=== PATIENT | male | born 1975 | race Hispanic/Latino ===

== ENCOUNTER 2017-09-17 15:26 | Inpatient (IN) | payer OTHER ==
[~2017-09-17] VITALS: Ht 165.1 cm; Wt 83.0 kg
--- NOTE | 2017-09-17 15:59 | CT SCAN REPORT ---
EXAMINATION: CT HEAD WITHOUT CONTRAST CLINICAL INFORMATION: Hypertension, headache COMPARISON: None TECHNIQUE: Contiguous axial imaging was performed from the skull base to vertex without intravenous administration of contrast. DLP: 613 mGy-cm FINDINGS: No intra-axial or extra-axial hemorrhage. No acute territorial infarct. Ventricles and sulci appear normal. Preservation of chavez-white matter differentiation. No mass, mass effect, or midline shift. No fracture. The mastoid air cells and visualized paranasal sinuses are clear. IMPRESSION: No acute intracranial pathology.
--- NOTE | 2017-09-17 16:18 | RADIOLOGY REPORT ---
EXAMINATION: XR CHEST CLINICAL INFORMATION: Chest pain. COMPARISON: None TECHNIQUE: 2 views of the chest were obtained. FINDINGS: No significant abnormality is noted involving the heart, lungs, mediastinum, bony thorax or soft tissues. IMPRESSION: No acute pulmonary pathology demonstrated.
[2017-09-17 16:27] LABS: ABSOLUTE BASOPHIL COUNT 0.1 /CUMM (0.0-0.2); ABSOLUTE EOSINOPHIL COUNT 0.1 /CUMM (0.0-0.7); ABSOLUTE GRANULOCYTE CT 10.3 /CUMM (1.4-6.5); ABSOLUTE LYMPH COUNT 2.7 /CUMM (1.2-3.4); ABSOLUTE MONOCYTE COUNT 1.4 /CUMM (0.10-0.60); BASOPHIL % 0.4 % (0.0-2.0); EOSINOPHIL % 0.9 % (0-5); GRANULOCYTE % 70.6 % (42.2-75.2); HEMATOCRIT 48.5 % (42-52); MEAN CORPUSCULAR HGB CONC 33.7 G/DL (33.0-37.0); MEAN CORPUSCULAR VOLUME 91.9 FL (80.0-94.0); MEAN PLATELET VOLUME 7.8 FL (7.4-10.4); PLATELET COUNT 246 /CUMM (130-400); RBC DISTRIBUTION WIDTH 13.7 % (11.5-14.5); RED BLOOD CELL CT 5.27 /CUMM (4.70-6.10); WHITE BLOOD CELL COUNT 14.6 /CUMM (4.8-10.8)
--- NOTE | 2017-09-17 17:00 | ED GENERAL ADULT ---
History of Present Illness General Chief Complaint: Neuro Symptoms/ Deficit Stated Complaint: SENT BY URGENT FOR NEURO SYMPTOMS Source: patient, family Exam Limitations: no limitations Vital Signs & Intake/Output Vital Signs & Intake/Output Vital Signs Date Time Temp Pulse Resp B/P B/P Pulse O2 O2 Flow FiO2 Mean Ox Delivery Rate 09/18 0233 66 213/117 09/18 0142 100 Room Air 09/18 0043 98.1 73 18 166/89 98 Room Air 09/17 2333 98.0 68 18 175/94 98 Room Air 09/17 2130 67 18 178/108 99 Room Air 09/17 1823 178/110 09/17 1805 97.7 71 20 185/112 98 Room Air 09/17 1733 97.4 72 20 179/109 09/17 1705 97.4 72 20 179/109 99 Room Air 09/17 1634 100 Room Air Room Air 09/17 1621 72 20 206/114 100 Room Air 09/17 1605 97.3 93 18 202/132 09/17 1533 97.3 93 18 202/132 99 Room Air ED Intake and Output 09/18 0000 09/17 1200 Intake Total Output Total Balance Patient 185 lb Weight Weight Reported by Patient Measurement Method Allergies Coded Allergies: No Known Allergies (09/17/17) Reconcile Medications No Known Home Medications Triage Note: 41M REPORTS FEELING ILL SINCE WEDNESDAY STARTING W SORE THROAT, RELATIONSHIP MANAGER COUGH AND CHEST PRESSURE W JAW PAIN - CONSTANT. REPORTS HX OF HTN, UNTREATED DUE TO NO INSURANCE COVERAGE. HEADACHE YESTERDAY, NONE AT PRESENT AND DENIES VISION CHANGES. WENT TO WALK IN WHO REFERRED HIM TO ED TO R/O CVA. DENIES NUMBNESS OR PARASTHESIAS, SPEECH CLEAR AND NO FACIAL DROOP. ENDORSES SUBJECTIVE FEVERS/CHILLS BUT AFEBRILE IN TRIAGE. +N/V/D X1-2 DAYS, NO DISTRESS AT PRESENT. MANUAL BP 202/132 IN TRIAGE. IMMEDIATELY TO ROOM 1 FOR EVAL Triage Nurses Notes Reviewed? yes Onset: Gradual Duration: day(s): Timing: recent history Injury Environment: home Severity: moderate HPI: 41-year-old male with history of hypertension presents emergency department symptomatically urgent care for hypertension. Patient states he has been feeling ill for the past 3 days with symptoms including sore throat, dry cough, nausea, bloody vomiting, nonbloody diarrhea. Patient reports perfectly to episode of diarrhea per day. Patient states that 2 nights ago he experienced severe substernal chest pain described as 20/10. Chest pain resolved on its own. Patient has been off of his blood pressure medications for over one year as he does not of medical insurance and cannot afford it. Patient recently returned home from a vacation to [place]. Patient reports a headache yesterday however no current headache. Patient denies visual changes, syncope, abdominal pain, dyspnea. (Temitope Carbajal) Past History Travel History Traveled to [place] past 21 day No Medical History Any Pertinent Medical History? see below for history Cardiovascular: hypertension Musculoskeletal: L3-L5 BULGING DISCS Surgical History Surgical History: non-contributory Psychosocial History What is your primary language [place] Tobacco Use: Current Daily Use Daily Tobacco Use Amount/Type: => 5 Cigarettes daily ETOH Use: occasional use Illicit Drug Use: marijuana Family History Hx Contributory? No (Temitope Carbajal) Review of Systems Review of Systems Constitutional: Reports: see HPI. EENTM: Reports: see HPI. Respiratory: Reports: no symptoms. Cardiovascular: Reports: see HPI. GI: Reports: see HPI. Genitourinary: Reports: no symptoms. Musculoskeletal: Reports: no symptoms. Skin: Reports: no symptoms. Neurological/Psychological: Reports: no symptoms. Hematologic/Endocrine: Reports: no symptoms. Immunologic/Allergic: Reports: no symptoms. All Other Systems: Reviewed and Negative (Temitope Carbajal) Physical Exam Physical Exam General Appearance: well developed/nourished, no apparent distress, alert, awake Head: atraumatic, normal appearance Eyes: Bilateral: normal appearance. 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 Yes CVA/TIA Diagnosis: No Sepsis Present: No Sepsis Focused Exam Completed? No (Verna ESCOBAR,Temitope Walden) Progress Differential Diagnoses I considered the following diagnoses in my evaluation of the patient: [ Hypertensive urgency, hypertensive emergency, AMI, ICH, PE, aortic dissection] Plan of Care: Orders Procedure Date/time Status Nothing by Mouth 09/18 B Active ECHOCARDIOGRAM 09/18 0700 Active LIPID PANEL 09/18 0500 Active ICU LAB BUNDLE 09/18 0500 Active CBC WITHOUT DIFFERENTIAL 09/18 0500 Active ACTIVE SURVEILLANCE NARES 09/18 0206 Active Weight 09/18 0140 Active VTE Mechanical Prophylaxis 09/18 0140 Active Vital Signs 09/18 0140 Active Turn and Reposition 09/18 0140 Active Teach/Educate 09/18 0140 Active Skin Integrity Protocol 09/18 0140 Active Skin/Pressure Ulcer Assess (Sk 09/18 0140 Active Precautions 09/18 0140 Active Pain Treatment and Response 09/18 0140 Active Nutritional Intake, Monitor 09/18 0140 Active Isolation 09/18 0140 Active Patient Care Conference 09/18 0140 Active Activity/Ambulation 09/18 0140 Active TROPONIN LEVEL 09/18 0100 Active EKG 09/18 0100 Active Heart Healthy Diet 09/17 D Complete Pathway - chart 09/17 2306 Active Code Status 09/17 2306 Active Lab Add-on Test 09/17 2152 Active Patient Data 09/17 2147 Active Admit to inpatient 09/17 2136 Active URINE DRUG SCREEN FOR ER ONLY 09/17 1946 Complete MAGNESIUM 09/17 1911 Complete TROPONIN LEVEL 09/17 1910 Complete EKG 09/17 1709 Active THYROID STIMULATING HORMONE 09/17 1610 Complete FREE T4 09/17 1610 Complete Intake & Output 09/17 1534 Active THROAT CULTURE W/QUICK STREP 09/17 1534 Active Telemetry/Quality Assurance Intern 09/17 1533 Active TROPONIN LEVEL 09/17 1533 Complete D-DIMER 09/17 1533 Complete COMPREHENSIVE METABOLIC PANEL 09/17 1533 Complete CBC WITHOUT DIFFERENTIAL 09/17 1533 Complete EKG 09/17 1533 Active Pathway - chart 09/17 UNK Active House Staff 09/17 UNK Active ACS Core Measures 09/17 UNK Active Lab Add-on Test 09/17 UNK Active VTE Mechanical Prophylaxis 09/17 UNK Active Vital Signs 09/17 UNK Active Current Medications Sig/Ludmila Start time Last Medication Dose Stop Time Status Admin Lisinopril 10 MG DAILY 09/18 0900 AC (Prinivil) Multivitamins 1 TAB DAILY 09/18 0900 AC (Theragran Vitamins) Heparin Sodium 5,000 UNIT Q8 09/18 06 AC (Porcine) Laboratory Tests 09/18/17 0125: Troponin I Pending 09/18/17 0039: Urine Opiates Screen < 100, Methadone Screen < 40, Barbiturate Screen < 60, Ur Phencyclidine Scrn < 6.00, Amphetamines Screen < 100, U Benzodiazepines Scrn > 800 H, Urine Cocaine Screen < 50, Urine Cannabis Screen 77.00 H 09/17/17 1911: Magnesium 1.9, Troponin I 0.13 *H 09/17/17 1610: Anion Gap 14, Estimated GFR > 60, BUN/Creatinine Ratio 16.7, Glucose 97, Calcium 9.9, Total Bilirubin 0.6, AST 21, ALT 27, Alkaline Phosphatase 84, Troponin I 0.11 *H, Total Protein 8.4 H, Albumin 4.7, Globulin 3.7, Albumin/Globulin Ratio 1.3, TSH 1.660, Free T4 1.54, D-Dimer High Sensitivty < 200, CBC w Diff NO MAN DIFF REQ, RBC 5.27, MCV 91.9, MCH 31.0, MCHC 33.7, RDW 13.7, MPV 7.8, Gran % 70.6, Lymphocytes % 18.8 L, Monocytes % 9.3, Eosinophils % 0.9, Basophils % 0.4 , Absolute Granulocytes 10.3 H, Absolute Lymphocytes 2.7, Absolute Monocytes 1.4 H, Absolute Eosinophils 0.1, Absolute Basophils 0.1 Microbiology 09/18 0130 UPPER RESP: Surveillance Culture - RECD Spoke with Dr. Hurt who agrees with our plan of care at this time. He recommends ASA now pending CT. Patient given labetalol 10 mg with some reduction in his blood pressure. He was given a second dose of [address] aortogram is pending given patient's elevated troponin here and will assess for aortic dissection versus central pulmonary embolism. Dr. Silverio agrees with the plan of care. CTA is negative. Spoke with Dr. Newton regarding this patient and trending up troponin. She reviewed the patient's EKGs and She believes these findings are consistent with strain relating to hypertensive emergency rather than AMI. She states his blood pressure has been adequately reduced so far here in the emergency department and states further blood pressure control at this time is not necessary. She agrees with the plan of aspirin, she recommends ICU admission. Spoke with Dr. Younger regarding the patient's ICU admission. Diagnostic Imaging: Viewed by Me: Radiology Read, CT Scan. Discussed w/RAD: Radiology Read, CT Scan. Radiology Impression: PATIENT: LACY ALEMAN PRESENT AGE: 41 PATIENT ACCOUNT NO: [id number] : 77 LOCATION: ER ORDERING PHYSICIAN: Good ESCOBAR SERVICE DATE: 09/17/17 EXAM TYPE: CAT - CT HEAD WO IV CONTRAST EXAMINATION: CT HEAD WITHOUT CONTRAST CLINICAL INFORMATION: Hypertension, headache COMPARISON: None TECHNIQUE: Contiguous axial imaging was performed from the skull base to vertex without intravenous administration of contrast. DLP: 613 mGy-cm FINDINGS: No intra-axial or extra- axial hemorrhage. No acute territorial infarct. Ventricles and sulci appear normal. Preservation of chavez-white matter differentiation. No mass, mass effect, or midline shift. No fracture. The mastoid air cells and visualized paranasal sinuses are clear. IMPRESSION: No acute intracranial pathology. DICTATED BY: Dino Siddiqui MD DATE/TIME DICTATED:09/17/171553 PAPER WINDER: TODD DATE/TIME TRANSCRIBED:09/17/171553 CONFIDENTIAL, DO NOT COPY WITHOUT APPROPRIATE AUTHORIZATION. <Electronically signed in Other Vendor System> SIGNED BY: Dino Siddiqui MD 09/17/171558 CXR Impression: PATIENT: LACY ALEMAN PRESENT AGE: 41 PATIENT ACCOUNT NO: [id number] : 77 LOCATION: ER ORDERING PHYSICIAN: Good ESCOBAR SERVICE DATE: 09/17/17 EXAM TYPE: RAD - XRY-CHEST XRAY, TWO VIEWS EXAMINATION: XR CHEST CLINICAL INFORMATION: Chest pain. COMPARISON: None TECHNIQUE: 2 views of the chest were obtained. FINDINGS: No significant abnormality is noted involving the heart, lungs, mediastinum, bony thorax or soft tissues. IMPRESSION: No acute pulmonary pathology demonstrated. DICTATED BY: Elkin Christianson MD DATE/TIME DICTATED:09/17/171607 PAPER WINDER:TAYLOR DATE/TIME TRANSCRIBED:09/17/17 160 CONFIDENTIAL, DO NOT COPY WITHOUT APPROPRIATE AUTHORIZATION. <Electronically signed in Other Vendor System> SIGNED BY: Elkin Christianson MD 09/17/171617 Initial ED EKG: sinus rhythm @85bpm, LVH, nonspecific ST changes Repeat EKG: unchanged (Temitope Carbajal) Departure Departure Disposition: STILL A PATIENT Condition: Stable Clinical Impression Primary Impression: Hypertensive emergency Secondary Impressions: Elevated troponin Referrals: Patient Has No Primary Care Dr (PCP/Family) Departure Forms: Customer Survey General Discharge Information Prescriptions: Current Visit Scripts No Known Home Medications Admission Note Spoke With: Mp Younger MD Documentation of Exam: Documentation of any treatments & extenuating circumstances including Concerns Regarding Discharge (functional status, medication knowledge or non-compliance, living conditions, etc.) that warrant an admission rather than observation: [ Hypertension emergency with evidence of cardiac stress given elevated troponin requiring ICU monitoring, IV antihypertensives, repeat EKGs and troponins, cardiology consult, premature discharge medically unsafe] (Temitope Carbajal) PA/RELATIONSHIP MANAGER Co-Sign Statement Statement: ED Attending supervision documentation- [x] I saw and evaluated the patient. I have also reviewed all the pertinent lab results and diagnostic results. I agree with the findings and the plan of care as documented in the PA's/RELATIONSHIP MANAGER's documentation. 09/17/17, 22:00.... pt going to icu, care assumed by me... pt resting comfortably , chest pain free, benign exam.... merits admission for serial trops/blood pressure control, cards evaluation. [] I have reviewed the ED Record and agree with the PA's/RELATIONSHIP MANAGER's documentation. [] Additions or exceptions (if any) to the PAs/RELATIONSHIP MANAGER's note and plan are summarized below: [] (Lili MCARTHUR,Inderjit Kaminski) Critical Care Note Critical Care Note Critical Care Time: 75-104 min (Temitope Carbajal)
--- NOTE | 2017-09-17 18:09 | CT SCAN REPORT ---
EXAMINATION: CT ANGIOGRAM CHEST, ABDOMEN AND PELVIS CLINICAL INFORMATION: Chest pain. Recent travel. Positive troponin. COMPARISON: Chest x-ray 09/17/2017 TECHNIQUE: Noncontrast axial images obtained through the chest. Multiple axial images were obtained through the chest abdomen and pelvis following the administration of 95 mL of Optiray 320 intravenous contrast. Coronal and sagittal reformatted images performed at CT scanner. No 3-D imaging. DLP: 1229.06 mGy-cm. FINDINGS: VASCULAR: The thoracic aorta is normal. There is no dissection. There is no aneurysm. There is mild atherosclerotic vascular wall calcifications of the abdominal aorta. There is normal enhancement of the major branch vessels at the thoracic aortic arch as well as in the abdomen and pelvis. The pulmonary arteries are well opacified. No evidence of central pulmonary embolism. There are coronary artery calcifications. CT CHEST: MEDIASTINUM: No mediastinal mass. No significant lymphadenopathy. There is no pericardial effusion. LUNGS: The lungs are clear. No nodule or infiltrate. Central bronchial airways open. FLUID: There is no pericardial effusion. There is no pleural effusion. AXILLA: No significant lymphadenopathy. CT SCAN ABDOMEN PELVIS: LIVER, GALLBLADDER, AND BILIARY TREE: The liver is normal in size, shape, and attenuation. No focal hepatic lesion or biliary ductal dilatation is present. The gallbladder is unremarkable with no evidence of radiopaque gallstones, gallbladder wall thickening, or obvious pericholecystic inflammatory changes. PANCREAS: Unremarkable. SPLEEN: Unremarkable. ADRENAL GLANDS: 1.6 cm fatty adrenal adenoma involving the right adrenal gland. Left adrenal gland is normal. KIDNEYS AND URETERS: The kidneys are normal in size, shape, and attenuation. No hydronephrosis, hydroureter, or calculi seen. No perinephric stranding. BLADDER: Unremarkable. GASTROINTESTINAL TRACT: The small and large bowel are unremarkable. The appendix is unremarkable. ABDOMINAL WALL: No significant hernia is appreciated. LYMPH NODES: Normal. PELVIC VISCERA: Unremarkable. OSSEOUS STRUCTURES: Unremarkable. IMPRESSION: Normal CT scan of the chest, abdomen pelvis. Normal aorta.
--- NOTE | 2017-09-17 21:50 | History & Physical ---
AntoinetteYann 09/17/172149: General Information and HPI MD Statement: I have seen and personally examined LAYC ALEMAN and documented this H&P. The patient is a 41 year old M who presented with a patient stated chief complaint of [chest pain]. Source of Information: patient, family Exam Limitations: no limitations History of Present Illness: This is a 41 years old gentleman who has history of hypertension for the past 15 years diagnosed when he was 27 years old and who has not been on medication for the past 2 yearS by history seems to have been taking hydrochlorothiazide 25 mg before stopping to take the medication due to insurance/cost issues. He does not have a PCP. The patient is reporting to be well until 2 days ago on Wednesday when he started having chills throat pain and bilateral jaw pain which was associated with central chest pain with shortness of breath and feeling like 300 pounds on his chest. The pain was on and off lasting throughout the night into morning and he reports to be severe 20 out of 10 but did not take any medication or seek medical attention. He denies ever experiencing this kind of chest pain in the past and he reports to do all his activities without limitation. He reports significant increase in his pain when he lies flat and slight relief with sitting down. The pain subsided from morning just to recur again today after which his forced him to go to walk-in clinic after which was sent to [facility]. The patient is reporting that since Wednesday he has been unable to sleep despite being a very heavy sleeper and has almost spent the past 2 nights awake. Patient is reporting throat pain for the past 2 days she denies pain during swallowing he is having a cough that is dry but denies any nasal congestion, posterior nasal dripping of heaviness in the sinuses he has no sick contact of anyone with similar symptoms. He has been having GI symptoms for the same duration of 2 days initially with vomiting recently eaten food no blood multiple times until when he was just wrenching with dry heaves and on the same note started having diarrhea which was nonbloody around 4 motions. He has sick contact with 2 family members having the same GI symptoms and he thought that he might be having a stomach bug. He is reporting chills for the same duration but denies any fevers. Patient denies using drugs of abuse like cocaine but reports that he intermittently smokes marijuana. This patient has significant family history of coronary artery disease with his father being hypertensive at an early age and from massive myocardial infarction at age 42. He reports dizziness and lightheadedness but denies any weakness, change in voice or impaired gait. Allergies/Medications Allergies: Coded Allergies: No Known Allergies (09/17/17) Home Med list No Known Home Medications Past History Travel History Traveled to [place] past 21 day No Medical History Cardiovascular: hypertension Musculoskeletal: L3-L5 BULGING DISCS Surgical History Surgical History: non-contributory Past Family/Social History Family History Relations & Conditions if any FATHER (Hypertension of myocardial infarction at 42 years). Psychosocial History ETOH Use: occasional use Illicit Drug Use: marijuana Functional Ability ADLs Independent: dressing, eating, toileting, bathing. Review of Systems Review of Systems Constitutional: Reports: chills, weakness. Denies: fever. Cardiovascular: Reports: chest pain, palpitations. Denies: edema. Respiratory: Reports: cough, short of breath. Denies: hemoptysis, sputum production, wheezing. GI: Reports: diarrhea, nausea, vomiting. Genitourinary: Denies: no symptoms. Musculoskeletal: Denies: no symptoms. Hematologic/Endocrine: Denies: no symptoms. Immunologic/Allergic: Denies: no symptoms. All Other Systems: Reviewed and Negative Exam & Diagnostic Data Last 24 Hrs of Vital Signs/I&O Vital Signs Date Time Temp Pulse Resp B/P B/P Pulse O2 O2 Flow FiO2 Mean Ox Delivery Rate 09/17 2130 67 18 178/108 99 Room Air 09/17 1823 178/110 09/17 1805 97.7 71 20 185/112 98 Room Air 09/17 1733 97.4 72 20 179/109 09/17 1705 97.4 72 20 179/109 99 Room Air 09/17 1634 100 Room Air Room Air 09/17 1621 72 20 206/114 100 Room Air 09/17 1605 97.3 93 18 202/132 09/17 1533 97.3 93 18 202/132 99 Room Air Intake & Output 09/17 1600 09/17 0800 09/17 0000 Intake Total Output Total Balance Patient 185 lb Weight Physical Exam General Appearance Alert, Oriented X3, Cooperative, No Acute Distress Skin No Rashes, Muultiple tatoos upper limbs ni IV track wen Skin Temp/Moisture Exam: Warm/Dry Sepsis Skin Exam (color): Normal for Ethnicity HEENT Atraumatic, PERRLA, EOMI, dry mucous membranes Neck Supple, No JVD Cardiovascular Regular Rate, Normal S1, Normal S2, No Murmurs Lungs Clear to Auscultation, Normal Air Movement Abdomen Normal Bowel Sounds, Soft, No Tenderness, No Hepatospenomegaly, No Masses Neurological Normal Speech, Strength at 5/5 X4 Ext, Normal Tone, Sensation Intact, Cranial Nerves 3-12 NL, Reflexes 2+ Extremities No Clubbing, No Cyanosis, No Edema, Normal Pulses Vascular Normal Pulses Last 24 Hrs of Labs/Sourav: Laboratory Tests 09/17/17 1911: Magnesium 1.9, Troponin I 0.13 *H 09/17/17 1610: Anion Gap 14, Estimated GFR > 60, BUN/Creatinine Ratio 16.7, Glucose 97, Calcium 9.9, Total Bilirubin 0.6, AST 21, ALT 27, Alkaline Phosphatase 84, Troponin I 0.11 *H, Total Protein 8.4 H, Albumin 4.7, Globulin 3.7, Albumin/Globulin Ratio 1.3, TSH Pending, Free T4 Pending, D-Dimer High Sensitivty < 200, CBC w Diff NO MAN DIFF REQ, RBC 5.27, MCV 91.9, MCH 31.0, MCHC 33.7, RDW 13.7, MPV 7.8, Gran % 70.6, Lymphocytes % 18.8 L, Monocytes % 9.3, Eosinophils % 0.9, Basophils % 0.4 , Absolute Granulocytes 10.3 H, Absolute Lymphocytes 2.7, Absolute Monocytes 1.4 H, Absolute Eosinophils 0.1, Absolute Basophils 0.1 Diagnostic Data EKG Results Mild about [address] elevation in lead I and II, ST depression in lead 5 and 6 there is no baseline EKG Very large QRS complexes normal axis CXR Results No acute pathology Other Results CTA of the chest abdomen and pelvis is negative Assessment/Plan Assessment: This is a 41 years old with known hypertension for the past 15 years who is presenting with chest pain for the past 3 days severe central chest pain with bilateral jaw pain associated with shortness of breath and feeling like 300 pounds on his chest. Patient is not on high antihypertensive medication for the past 2 years. On presentation he was found to be severely hypotensive blood pressure of 202/132 and elevated troponin initially 0.11 and on repeated value increase it to 0.13 with EKG changes mild ST elevation in lead I and II and ST depression in lead 5 and 6. The EKG is also showing very large QRS complexes signifying extended. Of elevated blood pressure. Problem list Hypertensive emergency Elevated troponin with EKG changes Leukocytosis Gastroenteritis Nicotine dependence Admit the patient to the intensive care unit Vital signs every hour Patient blood pressure has decreased about 25% and will continue to have permissive hypertension with systolic of around 170 without further attempt to decrease the blood pressure more We will start the patient on lisinopril 10 mg daily from a.m. but will consider starting earlier if blood pressure goes up significantly Continue to use intermittent IV labetalol to control high blood pressure U tox to rule out cocaine intoxication TSH and free T4 Lipid panel on a.m. blood work Echocardiogram Cardiology consult Case management consult to help with insurance issues Counseling on cigarette smoking Patient is full code Alps and heparin for DVT prophylaxis Heart healthy diet now and n.p.o. from midnight As Ranked By This Provider Problem List: 1. Elevated troponin 2. Hypertensive emergency 3. Gastroenteritis 4. Leucocytosis Core Measures/Misc (12/06) Acute Coronary Syndrome ACS Diagnosis: Yes No ANKIT/ARB d/t Started on Lisinopril No ASA d/t Given No Statin d/t No data checking panel Congestive Heart Failure Congestive Heart Failure Diagnosis No Cerebrovascular Accident CVA/TIA Diagnosis: No VTE (View Protocol) VTE Risk Factors Acute Medical Illness No Mechanical VTE Prophylaxis d/t N/A MechProphylax Ordered No VTE Pharm Prophylaxis d/t NA PharmProphylax ordered Sepsis (View protocol) Sepsis Present: No If YES complete Sepsis Event Note If YES complete Sepsis Event Note Mp Younger 09/18/17 0211: Core Measures/Misc (12/06) Sepsis (View protocol) If YES complete Sepsis Event Note If YES complete Sepsis Event Note Attending MD Review Statement Attending Statement Attending MD Statement: examined this patient, discuss w/resident/PA/MORTISING MACHINE OPERATOR, agreed w/resident/PA/MORTISING MACHINE OPERATOR, discussed with family, reviewed EMR data (avail), reviewed images, amended to note Attending Assessment/Plan: CC: High blood pressure PMH: History of hypertension, noncompliance, back pain status post surgery ( Workmen's Comp. ) Patient has not been feeling well since the redness today, it started as sore throat, bilateral jaw pain, nonproductive cough and chest pressure. The symptoms were intermittent, lasted whole night and redness to it and chest pain gradually relieved by morning. His symptoms recurred again today so he went to urgent care where he was found to have high blood pressure and was sent to ER to rule out stroke. He denies any neurological weakness, currently denies any chest pain, shortness of breath, wheezing. He feels subjective fever and chills, has been having nausea, vomiting, diarrhea since last 1-2 days, most of his family members are sick with similar symptoms. He also endorses lightheadedness and palpitations when he had chest pain. Vitals: Temperature 97.3, pulse 93, RR 18, blood pressure 202/132 on arrival, gradually trended down to 179/109, saturating 99% on room air. On exam: A O 3, cooperative, no acute distress, neck supple, JVD normal, no lymphadenopathy, mucosa moist, complete neurological examination normal, no dependent edema, no obvious skin rashes or inflammation CVS: S1-S2, RRR. RS: Clear to auscultate bilaterally. Abdomen: Soft, NT, ND, bowel sounds present. CXR: No acute pulmonary pathology demonstrated. CT head without IV contrast: No acute intracranial pathology. CTA chest, abdomen and pelvis: Normal CT scan of the chest, abdomen pelvis. Normal aorta. Assessment and plan 41-year-old male with past medical history significant for hypertension, noncompliant with medications since last 2 years because of insurance issues and patient prefers not to take medications if not required; presented in ER from urgent care for significantly high blood pressure. He has hypertensive emergency along with ECG changes and elevated troponin. He had chest pain approximately 3 days back lasted overnight, intermittent, worse with lying down position and gradually improved over morning. He had another episode of chest pain today but currently pain-free. He also endorses lightheadedness and palpitations. Recently patient had been having nausea vomiting and diarrhea since last 2-3 days, all family members are sick with similar illness. ECG shows very minimal ST elevation in V1 and V2, ST depression in V5 and V6, likely secondary to hypertensive urgency, ECG was reviewed by critical systems technician. Second set of troponin trended up to 0.13 from 0.11. Patient also endorses marijuana use ( for back pain, no other meds), last use on Wednesday. He uses prescribed marijuana and does not get it from street, denies any cocaine or any other substance abuse. Significant family history, father had TX at the age of 42, patient is current smoker. HERNAN sre 3, patient may benefit from early cath, but we will obtained cardiology opinion . Given his severe chest pain, accelerated blood pressure CTA chest and abdomen and pelvis was obtained to rule out any aortic abnormalities. + Hypertensive emergency + ACS : NSTEMI + Leukocytosis probably secondary to recent gastroenteritis + Gastroenteritis probably viral - Admit to ICU, as suggested by critical systems technician - Continuous telemetry monitoring - Serial troponin and EKGs - 2-D echo in a.m. - Cardiology consult in a.m. - Continue aspirin, atorvastatin 40 mg, - Continue heparin drip is further chest pain episode or further elevation in troponin - U tox - If patient's blood pressure remains around 170s/110s than no further treatment , if blood pressure spikes more than this then when necessary laboratory all small doses - Start lisinopril 10 mg if BP trends up - Lipid profile Patient changed his job approximately 2 years back, they promised insurance but did not provide it. Even though he could afford medications he could not afford primary care office's fee so he stopped taking medications. Currently he has changed his job again, expecting insurance within a month of starting his new job. Patient could not qualify for state insurance.
[2017-09-18] VITALS (7 sets, daily range): BP systolic 144–213; BP diastolic 90–117
--- NOTE | 2017-09-18 02:15 | Admission Certification ---
Admission Certification Certification Statement - As attending physician, I certify that at the time of - admission, based on clinical presentation, severity of - symptoms, need for further diagnostic testing and - therapeutic interventions, and risk of adverse outcomes - without in-hospital treatment, in my clinical assessment, - this patient requires an acute hospital stay for a minimum - of two nights or longer. I have also considered psychsocial - factors such as support system, advanced age, financial - issues, cognitive issues, and failed out-patient treatments, - past re-admission history, safety of patient, and lack of - compliance as applicable. Specific rationale supporting this admission is: Hypertensive emergency, NSTEMI
[2017-09-18 05:38] LABS: ABSOLUTE BASOPHIL COUNT 0.1 /CUMM (0.0-0.2); ABSOLUTE EOSINOPHIL COUNT 0.1 /CUMM (0.0-0.7); ABSOLUTE GRANULOCYTE CT 8.6 /CUMM (1.4-6.5); ABSOLUTE LYMPH COUNT 2.3 /CUMM (1.2-3.4); ABSOLUTE MONOCYTE COUNT 1.3 /CUMM (0.10-0.60); BASOPHIL % 0.6 % (0.0-2.0); EOSINOPHIL % 1.2 % (0-5); HEMATOCRIT 43.6 % (42-52); MEAN CORPUSCULAR HGB 30.9 PG (27.0-31.0); MEAN CORPUSCULAR HGB CONC 33.6 G/DL (33.0-37.0); MEAN CORPUSCULAR VOLUME 91.9 FL (80.0-94.0); PLATELET COUNT 223 /CUMM (130-400); RBC DISTRIBUTION WIDTH 13.1 % (11.5-14.5); RED BLOOD CELL CT 4.75 /CUMM (4.70-6.10); WHITE BLOOD CELL COUNT 12.4 /CUMM (4.8-10.8)
[2017-09-18 06:25] LABS: PT 12.1 SEC (9.4-12.5)
--- NOTE | 2017-09-18 09:01 | PN- Housestaff ---
Bhavana MCARTHUR,Alexandr 09/18/17 0900: Subjective Follow-up For: Hypertensive emergency, type II WI Complaints: no complaints Tele-Events Since Last Visit: He had wide QRS complex/right bundle branch block,At around 1:49 a.m. which lasted for 30 seconds to 1 minute. He also had an episode of chest pain around 2 :30am with high blood pressure more than 200. Review of Systems Constitutional: Denies: no symptoms. Objective Last 24 Hrs of Vital Signs/I&O Vital Signs Date Time Temp Pulse Resp B/P B/P Pulse O2 O2 Flow FiO2 Mean Ox Delivery Rate 09/18 0914 97 124/70 09/18 0800 97.7 97 16 168/116 99 Room Air 09/18 0400 97 Room Air 09/18 0329 73 197/104 09/18 0300 70 23 197/104 98 Room Air 09/18 0233 66 213/117 09/18 0200 72 213/117 09/18 0142 100 Room Air 09/18 0100 72 15 213/117 100 Room Air 09/18 0043 98.1 73 18 166/89 98 Room Air 09/17 2333 98.0 68 18 175/94 98 Room Air 09/17 2130 67 18 178/108 99 Room Air 09/17 1823 178/110 09/17 1805 97.7 71 20 185/112 98 Room Air 09/17 1733 97.4 72 20 179/109 09/17 1705 97.4 72 20 179/109 99 Room Air 09/17 1634 100 Room Air Room Air 09/17 1621 72 20 206/114 100 Room Air 09/17 1605 97.3 93 18 202/132 09/17 1533 97.3 93 18 202/132 99 Room Air Intake & Output 09/18 1600 09/18 0800 09/18 0000 Intake Total 150 Output Total 150 Balance 0 Intake, IV 100 Intake, Oral 50 Number 0 Bowel Movements Output, Urine 150 Patient 78.473 kg 83.915 kg Weight Weight Bed scale Reported by Patient Measurement Method Physical Exam General Appearance: Alert, Oriented X3, Cooperative, No Acute Distress HEENT: Atraumatic, PERRLA, EOMI Neck: Supple, No JVD Cardiovascular: Regular Rate, Normal S1, Normal S2 Lungs: Clear to Auscultation, Normal Air Movement Abdomen: Soft, No Tenderness Neurological: Normal Speech Extremities: No Clubbing, No Cyanosis, No Edema Current Medications: Current Medications Sig/Ludmila Start time Last Medication Dose Route Stop Time Status Admin Amlodipine Besylate 10 MG DAILY 09/18 1312 UNVr PO Aspirin 81 MG DAILY 09/18 0944 AC 09/18 PO 1007 Aspirin 0 .STK-MED ONE 09/17 1801 DC PO Aspirin 325 MG ONCE ONE 09/17 1800 DC 09/17 PO 09/17 1801 1805 Atorvastatin Calcium 40 MG 1700 09/18 1700 AC PO Heparin Sodium 5,000 UNIT Q8 09/18 0600 AC (Porcine) SC Hydralazine HCl 10 MG TIDPRN 09/18 1315 UNVr IV Labetalol HCl 5 MG ONCE ONE 09/18 0215 DC 09/18 IV 09/18 0216 0233 Labetalol HCl 20 MG ONCE ONE 09/17 1715 DC 09/17 IV 09/17 1716 1733 Labetalol HCl 0 .STK-MED ONE 09/17 1602 DC IV Labetalol HCl 10 MG ONCE ONE 09/17 1545 DC 09/17 IV 09/17 1546 1605 Lisinopril 10 MG DAILY 09/18 0900 AC 09/18 PO 0914 Lisinopril 10 MG ONCE ONE 09/18 0215 DC 09/18 PO 09/18 0216 0329 Lorazepam 1 MG ONE ONE 09/18 1145 DC 09/18 IV 09/18 1146 1138 Magnesium Sulfate 1 GM ONCE ONE 09/18 0445 DC 09/18 Dextrose/Water 100 ML IV 09/18 0844 0459 Multivitamins 1 TAB DAILY 09/18 0900 AC 09/18 PO 0914 Last 24 Hrs of Lab/Sourav Results Last 24 Hrs of Labs/Mics: Laboratory Tests 09/18/17 0510: Anion Gap 11, Estimated GFR > 60, Glucose 86, Calcium 9.3, Phosphorus 4.6 H, Magnesium 2.0, Total Bilirubin 0.7, AST 17, ALT 27, Albumin 4.0, Triglycerides 108, Cholesterol 134, LDL Cholesterol, Calc 79, HDL Cholesterol 34 L, Cholesterol/HDL Ratio 4, PT 12.1, INR 1.11, CBC w Diff NO MAN DIFF REQ, RBC 4.75 , MCV 91.9, MCH 30.9, MCHC 33.6, RDW 13.1, MPV 8.0, Gran % 69.0, Lymphocytes % 18.9 L, Monocytes % 10.3 H, Eosinophils % 1.2, Basophils % 0.6, Absolute Granulocytes 8.6 H, Absolute Lymphocytes 2.3, Absolute Monocytes 1.3 H, Absolute Eosinophils 0.1, Absolute Basophils 0.1 09/18/17 0125: Troponin I 0.13 *H 09/18/17 0039: Urine Opiates Screen < 100, Methadone Screen < 40, Barbiturate Screen < 60, Ur Phencyclidine Scrn < 6.00, Amphetamines Screen < 100, U Benzodiazepines Scrn > 800 H, Urine Cocaine Screen < 50, Urine Cannabis Screen 77.00 H 09/17/17 1911: Magnesium 1.9, Troponin I 0.13 *H 09/17/17 1610: Anion Gap 14, Estimated GFR > 60, BUN/Creatinine Ratio 16.7, Glucose 97, Calcium 9.9, Total Bilirubin 0.6, AST 21, ALT 27, Alkaline Phosphatase 84, Troponin I 0.11 *H, Total Protein 8.4 H, Albumin 4.7, Globulin 3.7, Albumin/Globulin Ratio 1.3, TSH 1.660, Free T4 1.54, D-Dimer High Sensitivty < 200, CBC w Diff NO MAN DIFF REQ, RBC 5.27, MCV 91.9, MCH 31.0, MCHC 33.7, RDW 13.7, MPV 7.8, Gran % 70.6, Lymphocytes % 18.8 L, Monocytes % 9.3, Eosinophils % 0.9, Basophils % 0.4 , Absolute Granulocytes 10.3 H, Absolute Lymphocytes 2.7, Absolute Monocytes 1.4 H, Absolute Eosinophils 0.1, Absolute Basophils 0.1 Microbiology 09/18 0130 UPPER RESP: Surveillance Culture - RECD Assessment/Plan Assessment: Patient is a 41-year-old male, chronic smoker, significant family history of early onset coronary artery disease (age 40), and hypertension, with past medical history of hypertension, noncompliant with the medication, came to the ED after he was diagnosed as having very high blood pressure 203/110, at the urgent care. Other past medical history - chronic back pain (?PVD) -getting epidural injections every year(last April 2017) History of hypertension -he was diagnosed as having hypertension 2004. He never been on any medication. Whenever he visited urgent care. He was told as having high blood pressure, but he denies as giving any medication. As he is originally from [facility], he describes that he eats a lot of salt and meat. He is trying to be healthy, and started on low salt and using more vegetables and fruits. 2 years ago, he visited Dr. mccray infirmary attendant at [facility] and was given hydrochlorothiazide 25mg. He lost his insurance around 1 year ago, so he stopped the medication and not following any primary care provider. He visited Dr. Mccray in April 2017. He had an episode of chest pain, 07/29 3 days ago, which was increasing on lying down, and was improving on sitting, and subsided in 15 minutes. Yesterday at the time of admission his blood pressure was 202/132. He was given injection labetalol 30 milligrams in the ED and admitted into the ICU for further evaluation and management. In ICU he had an episode of wide QRS complex, possibly right bundle branch block at 149 a.m. with subsided in couple of seconds. He also had an episode of severe chest pain at 230, which lasted for a couple of seconds. He described his chest pain as a pressure or somebody sitting on the chest, which radiated to his jaw. His troponins were elevated in range of 0., 0.13, 0.13. Hypertension emergency - Demand ischemia Assessment - Patient is having adult onset hypertension, but non-compliant with medication secondary to lack of insurance coverage and unawareness of complication of hypertension. At the time of presentation, he had not had any neurological symptoms, nausea, vomiting, back pain, dyspnea. His CT scan of head was negative for any evidence of hemorrhage, infarct, edema. His Utox was negative for cocaine. His ICU bundle was negative for kidney dysfunction, LFT changes.EKG did show T-wave inversion lateral leads. Plan - * After 24 hours our target of blood pressure will be 130/80. * We will continue patient on tab lisinopril 10 mgs, tab amlodipine 10 milligrams, inj hydralazine 10 mgs IV as needed. * We'll start patient on aspirin, statins. * We started him on low-salt diet * We counseled him for low salt diet, leading to smoking, and regular follow-up with PCP as an outpatient. * We also counseled him for follow-up with infirmary attendant for further evaluation of secondary causes of hypertension, coronary artery disease and possible coronary angiography. Leukocytosis -possibly reactionary Patient does not have fever, chills, denies for any nausea, vomiting, diarrhea. * We'll follow clinically Diet -low salt, heart healthy diet. DVT prophylaxis-Alps, heparin CODE STATUS-full code Problem List: 1. Hypertensive emergency 2. Demand ischemia Pain Ratin Pain Location: chest pain Pain Goal: Remain pain free Pain Plan: Avoid NSAIds Tomorrow's Labs & Rationales: ICU bundle for follow up DVT/Prophylaxis: mechanical, pharmacological Henrietta Will MD 09/18/17 0941: Attending MD Review Statement Attending Statement Attending MD Statement: examined this patient, discuss w/resident/PA/HEALTH CONSULTANT, reviewed EMR data (avail), reviewed images Attending Assessment/Plan: 41-year-old male past medical history of hypertension. He's had long-standing hypertension since age 27 but off late has not taken any medications partly because of the lack of health insurance. He came in with a hypertensive emergency with a pressure of 210/110 with associated chest pain and headache with it. He's also had a prodromal GI illness with some nausea, vomiting and sore throat. He received IV labetalol in the emergency room and now his pressure is completely stable at 124/70. His troponin peaked at 0.13 and has stayed stable as such. He had some minor T-wave inversions but no dynamic ST-T changes and is chest pain-free. At this time I think it's he is stable to be downgraded to telemetry, will follow-up as per cardiology and get an echocardiogram. I think the troponin reflects a type II WI and demand ischemia in the setting of uncontrolled hypertension. We'll start him on a baby aspirin and a statin. Right now he is completely normotensive and his pressure fell dramatically so will hold off any antihypertensives -the lisinopril 10 mg has been ordered and we can restart that as his blood pressure tolerates. CTA done for dissection is negative and will get a formal cardiology consult.
--- NOTE | 2017-09-18 12:53 | Cons- Cardiology ---
General Information and HPI Consulting Request Date of Consult: 09/18/17 Requested By: Mp Younger MD History of Present Illness: Young man with PMH significant for severe hypertension initially diagnosed fortuitously at the age of 27. He has been on/off medications +/- medical follow up due to lack of health insurance and high cost of medication. Lito's father at the age of 44 of a massive ACS. He presented chest pain described as pressure for about 15 minutes, nausea, vomiting and diarrhea on 09/15. On 09/17, He felt dizzy, general malaise, no chest pain (although he says he felt discomfort generally everywhere...) and went to urgent care, where a BP 220/130 was measured and patient was told to present himself to the ER. In the ER, he did not complain of chest pains, dyspnea, blurry vision, headache, focal neruological deficit. EKG showed LVH with non specific repolarization changes in the lateral leads likely related to LVH and strain. Troponins were slightly elevated (0.13), patient recieved labetalol IV X 3 and lisinopril 10 mg PO and BP has been 180-200/110-115 mmHg. Echocardiogram reveals moderate LVH with normal left atrium which is not dilated , and diastolic filling pattern does not reveal high ventricular filling pressures. Around 3-4 AM, patient presented chest pain and jaw tightening, of moderate intensity, lasting approximately 15 minutes, BP was 200/110 at the time, and patient did not report this pain to anyone. There has been no recurrence of chest pains since. The monitor this morning revealed episodes of regular monomorphic wide complex QRS intermittently with his regular sinus rhythm with narrow QRS. Patient was asymptomatic. I attempted to place an arterial line for better BP monitoring, however 2 attempts were unsuccessful due to patient being very anxious and trembling. There were no coplications observed. Allergies/Medications Allergies: Coded Allergies: No Known Allergies (09/17/17) Home Med List: No Known Home Medications Current Medications: Current Medications Sig/Ludmila Start time Last Medication Dose Route Stop Time Status Admin Aspirin 81 MG DAILY 09/18 0944 AC 09/18 PO 1007 Aspirin 0 .STK-MED ONE 09/17 1801 DC PO Aspirin 325 MG ONCE ONE 09/17 1800 DC 09/17 PO 09/17 1801 1805 Atorvastatin Calcium 40 MG 1700 09/18 1700 AC PO Heparin Sodium 5,000 UNIT Q8 09/18 0600 AC (Porcine) SC Labetalol HCl 5 MG ONCE ONE 09/18 0215 DC 09/18 IV 09/18 0216 0233 Labetalol HCl 20 MG ONCE ONE 09/17 1715 DC 09/17 IV 09/17 1716 1733 Labetalol HCl 0 .STK-MED ONE 09/17 1602 DC IV Labetalol HCl 10 MG ONCE ONE 09/17 1545 DC 09/17 IV 09/17 1546 1605 Lisinopril 10 MG DAILY 09/18 0900 AC 09/18 PO 0914 Lisinopril 10 MG ONCE ONE 09/18 0215 DC 09/18 PO 09/18 0216 0329 Lorazepam 1 MG ONE ONE 09/18 1145 DC 09/18 IV 09/18 1146 1138 Magnesium Sulfate 1 GM ONCE ONE 09/18 0445 DC 09/18 Dextrose/Water 100 ML IV 09/18 0844 0459 Multivitamins 1 TAB DAILY 09/18 09 AC 09/18 PO 0914 Review of Systems Review of Systems Constitutional: Reports: malaise. Denies: chills, diaphoresis, fever, weakness, unexplained weight loss. EENTM: Denies: blurred vision, double vision, visual changes, eye pain, epistaxis. Cardiovascular: Reports: chest pain. Denies: edema, orthopena, palpitations, peripheral edema, syncope. Respiratory: Reports: short of breath. Denies: cough, hemoptysis, orthopnea, sputum production, stridor, wheezing. GI: Denies: abdominal pain, bloating, diarrhea, melena, nausea, vomiting, steatorrhea. Genitourinary: Denies: dysuria, hematuria. Musculoskeletal: Denies: gout, joint pain, muscle stiffness. Neurological/Psychological: Denies: anxiety, cognitive dysfunction, confusion, depressed, headache, numbness , paresthesia, pre-existing deficit, tingling, tremors, weakness. 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 Psychosocial History Where Do You Live? Home Smoking Status: Current Everyday Smoker ETOH Use: occasional use Illicit Drug Use: marijuana Functional Ability ADLs Independent: dressing, eating, toileting, bathing. Exam & Diagnostic Data Vital Signs and I&O Vital Signs Date Time Temp Pulse Resp B/P B/P Pulse O2 O2 Flow FiO2 Mean Ox Delivery Rate 09/18 0914 97 124/70 09/18 0800 97.7 97 16 168/116 99 Room Air 09/18 0400 97 Room Air 09/18 0329 73 197/104 09/18 0300 70 23 197/104 98 Room Air 09/18 0233 66 213/117 09/18 0200 72 213/117 09/18 0142 100 Room Air 09/18 0100 72 15 213/117 100 Room Air 09/18 0043 98.1 73 18 166/89 98 Room Air 09/17 2333 98.0 68 18 175/94 98 Room Air 09/17 2130 67 18 178/108 99 Room Air 09/17 1823 178/110 09/17 1805 97.7 71 20 185/112 98 Room Air 09/17 1733 97.4 72 20 179/109 09/17 1705 97.4 72 20 179/109 99 Room Air 09/17 1634 100 Room Air Room Air 09/17 1621 72 20 206/114 100 Room Air 09/17 1605 97.3 93 18 202/132 09/17 1533 97.3 93 18 202/132 99 Room Air Intake & Output 09/18 1600 09/18 0800 09/18 0000 09/17 1600 09/18 0700 09/17 0000 Intake Total 150 Output Total 150 Balance 0 Intake, IV 100 Intake, Oral 50 Number 0 Bowel Movements Output, Urine 150 Patient 173 lb 185 lb 185 lb Weight Weight Bed scale Reported by Patient Measurement Method Physical Exam General Appearance: no apparent distress, alert, awake, comfortable Head: atraumatic Eyes: Bilateral: normal appearance, PERRL, EOMI. Neck: supple, full range of motion, trachea mid line (no JVD) Respiratory: normal breath sounds, chest non-tender, no respiratory distress, lungs clear Cardiovascular: regular rate/rhythm, normal peripheral pulses (absence of S3-S4) , bradycardia (apical impulse is sustained), systolic murmur Gastrointestinal: normal bowel sounds, soft, non-tender Extremities: normal capillary refill, no edema Neurologic/Psych: no motor/sensory deficits, awake, alert, oriented x 3 Labs/Sourav Results: Laboratory Tests 09/18 09/18 09/18 0510 0125 0039 Chemistry Sodium (137 - 145 mmol/L) 140 Potassium (3.5 - 5.1 mmol/L) 3.6 Chloride (98 - 107 mmol/L) 102 Carbon Dioxide (22 - 30 mmol/L) 26 Anion Gap (5 - 16) 11 BUN (9 - 20 mg/dL) 14 Creatinine (0.7 - 1.2 mg/dL) 0.8 Estimated GFR (>60 ml/min) > 60 Glucose (65 - 99 mg/dL) 86 Calcium (8.4 - 10.2 mg/dL) 9.3 Phosphorus (2.5 - 4.5 mg/dL) 4.6 H Magnesium (1.6 - 2.3 mg/dL) 2.0 Total Bilirubin (0.2 - 1.3 mg/dL) 0.7 AST (17 - 59 U/L) 17 ALT (21 - 72 U/L) 27 Troponin I (<0.11 ng/ml) 0.13 *H Albumin (3.5 - 5.0 g/dL) 4.0 Triglycerides (<150 mg/dL) 108 Cholesterol (< 200 MG/DL) 134 LDL Cholesterol, Calc (65 - 129 mg/dL) 79 HDL Cholesterol (40 - 60 mg/dL) 34 L Cholesterol/HDL Ratio (0.00 - 4.88 %) 4 Coagulation PT (9.4 - 12.5 SEC) 12.1 INR (0.90 - 1.17) 1.11 Hematology CBC w Diff NO MAN DIFF REQ WBC (4.8 - 10.8 /CUMM) 12.4 H RBC (4.70 - 6.10 /CUMM) 4.75 Hgb (14.0 - 18.0 G/DL) 14.7 Hct (42 - 52 %) 43.6 MCV (80.0 - 94.0 FL) 91.9 MCH (27.0 - 31.0 PG) 30.9 MCHC (33.0 - 37.0 G/DL) 33.6 RDW (11.5 - 14.5 %) 13.1 Plt Count (130 - 400 /CUMM) 223 MPV (7.4 - 10.4 FL) 8.0 Gran % (42.2 - 75.2 %) 69.0 Lymphocytes % (20.5 - 51.1 %) 18.9 L Monocytes % (1.7 - 9.3 %) 10.3 H Eosinophils % (0 - 5 %) 1.2 Basophils % (0.0 - 2.0 %) 0.6 Absolute Granulocytes (1.4 - 6.5 /CUMM) 8.6 H Absolute Lymphocytes (1.2 - 3.4 /CUMM) 2.3 Absolute Monocytes (0.10 - 0.60 /CUMM) 1.3 H Absolute Eosinophils (0.0 - 0.7 /CUMM) 0.1 Absolute Basophils (0.0 - 0.2 /CUMM) 0.1 Toxicology Urine Opiates Screen (>2000 NG/ML) < 100 Methadone Screen (>300 NG/ML) < 40 Barbiturate Screen (>200 NG/ML) < 60 Ur Phencyclidine Scrn (>25 NG/ML) < 6.00 Amphetamines Screen (>1000 NG/ML) < 100 U Benzodiazepines Scrn (>200 NG/ML) > 800 H Urine Cocaine Screen (>300 NG/ML) < 50 Urine Cannabis Screen (>50 NG/ML) 77.00 H 09/17 09/17 1911 1610 Chemistry Sodium (137 - 145 mmol/L) 144 Potassium (3.5 - 5.1 mmol/L) 4.0 Chloride (98 - 107 mmol/L) 102 Carbon Dioxide (22 - 30 mmol/L) 28 Anion Gap (5 - 16) 14 BUN (9 - 20 mg/dL) 15 Creatinine (0.7 - 1.2 mg/dL) 0.9 Estimated GFR (>60 ml/min) > 60 BUN/Creatinine Ratio (7 - 25 %) 16.7 Glucose (65 - 99 mg/dL) 97 Calcium (8.4 - 10.2 mg/dL) 9.9 Magnesium (1.6 - 2.3 mg/dL) 1.9 Total Bilirubin (0.2 - 1.3 mg/dL) 0.6 AST (17 - 59 U/L) 21 ALT (21 - 72 U/L) 27 Alkaline Phosphatase (< 127 U/L) 84 Troponin I (<0.11 ng/ml) 0.13 *H 0.11 *H Total Protein (6.3 - 8.2 g/dL) 8.4 H Albumin (3.5 - 5.0 g/dL) 4.7 Globulin (1.9 - 4.2 gm/dL) 3.7 Albumin/Globulin Ratio (1.1 - 2.2 %) 1.3 TSH (0.270 - 4.200 uIU/mL) 1.660 Free T4 (0.79 - 2.35 ng/dL) 1.54 Coagulation D-Dimer High Sensitivty (0 - 243 ng/ml) < 200 Hematology CBC w Diff NO MAN DIFF REQ WBC (4.8 - 10.8 /CUMM) 14.6 H RBC (4.70 - 6.10 /CUMM) 5.27 Hgb (14.0 - 18.0 G/DL) 16.3 Hct (42 - 52 %) 48.5 MCV (80.0 - 94.0 FL) 91.9 MCH (27.0 - 31.0 PG) 31.0 MCHC (33.0 - 37.0 G/DL) 33.7 RDW (11.5 - 14.5 %) 13.7 Plt Count (130 - 400 /CUMM) 246 MPV (7.4 - 10.4 FL) 7.8 Gran % (42.2 - 75.2 %) 70.6 Lymphocytes % (20.5 - 51.1 %) 18.8 L Monocytes % (1.7 - 9.3 %) 9.3 Eosinophils % (0 - 5 %) 0.9 Basophils % (0.0 - 2.0 %) 0.4 Absolute Granulocytes (1.4 - 6.5 /CUMM) 10.3 H Absolute Lymphocytes (1.2 - 3.4 /CUMM) 2.7 Absolute Monocytes (0.10 - 0.60 /CUMM) 1.4 H Absolute Eosinophils (0.0 - 0.7 /CUMM) 0.1 Absolute Basophils (0.0 - 0.2 /CUMM) 0.1 Assessment/Plan Assessment/Plan Hypertensive emergency in young patient with severe hypertension since his early twenties, not medically treated due to lack of insurance/financial restrictions. Type 2 NSTEMI with strain pattern on EKG, with very likely significant underlying CAD given his strong family history and significant EKG changes. I would definitely view him as a high risk CAD patient and will request cardiac catheterization prior to discharge, however, his BP should be lower prior to cath and antiplatelet/heparin loading due to cerebral hemorrhage potential ( although small). As for his medical treatment, i would begin norvasc 10 mg PO daily, continue with lisinopril 10 mg PO daily. Add hydralazine 10 mg IV tid prn for BP >160 mmHg systolic or >105 mmHg diastolic. Continue ASA and statin, i would begin brilinta with 180 mg loading and 90 mg bid afterward, once his BP is stable <160-170/95-100 mmHg. I would also add metoprolol 25 mg PO bid if tolerated beginning tomorrow. He would need a workup for causes of secondary hypertension at some point given that he has never had testing done. Consult Acknowledgment - Thank you for your consult request.
[2017-09-19] VITALS: BP 156/96
[2017-09-19 04:00] VITALS: BP 164/96
[2017-09-19 08:00] VITALS: BP 168/90
--- NOTE | 2017-09-19 08:17 | PN- Resident CRCU ---
Nathan Madrid 09/19/17 0816: Subjective HPI/CRCU Issues: Hypertensive Emergency Type II CT Pt was seen and examined at bedside. He states he was able to sleep, with no other acute complaints. Pt complains of persistent cough during the night, but denies SOB, chest pain, abdominal pain, N/V, blurry vision or muscle weakness. 24 Hour Events: No events overnight. Objective Vital Signs & I&O Last 8 Hrs of Vitals and I&O: Vital Signs Date Time Temp Pulse Resp B/P B/P Pulse O2 O2 Flow FiO2 Mean Ox Delivery Rate 09/19 0810 91 168/92 09/19 0809 91 168/92 09/19 0809 91 168/92 09/19 0800 96 Room Air Room Air 09/19 0800 97.7 89 12 168/90 96 Room Air Room Air 09/19 0655 99.6 69 18 174/98 09/19 0400 99.6 77 20 164/96 98 Room Air 09/19 0000 99.3 75 18 156/96 98 Room Air 09/19 0000 98 Room Air 09/18 2200 80 22 168/96 98 Room Air 09/18 1857 81 164/94 09/18 1610 156/92 09/18 1600 98.0 89 18 144/90 99 Room Air 09/18 1200 98 Room Air Intake & Output 09/19 1600 09/19 0800 09/19 0000 Intake Total 100 600 Output Total 350 Balance 100 250 Intake, IV 0 Intake, Oral 100 600 Number 0 Bowel Movements Output, Urine 350 Exam General Appearance: no apparent distress, alert, awake, comfortable Head: atraumatic, normal appearance Respiratory: normal breath sounds, lungs clear Cardiovascular: regular rate/rhythm (NO S3, S4. No murmurs, rubs or), No S3/S4. No murmurs, rubs or gallops. Gastrointestinal: normal bowel sounds, soft, non-tender Extremities: normal inspection, no edema Cranial Nerves: normal hearing, normal speech Skin: intact, normal color Skin Temp/Moisture Exam: Warm/Dry Sepsis Skin Exam (color): Normal for Ethnicity Current Medications: Current Medications Sig/Ludmila Start time Last Medication Dose Route Stop Time Status Admin Amlodipine Besylate 10 MG DAILY 09/18 1312 AC 09/19 PO 08 Aspirin 81 MG DAILY 09/18 0944 AC 09/19 PO 0809 Atorvastatin Calcium 40 MG 1700 09/18 1700 AC 09/18 PO 1838 Heparin Sodium 5,000 UNIT Q8 09/18 0600 AC 09/18 (Porcine) SC 1414 Hydralazine HCl 10 MG TIDPRN PRN 09/18 1315 AC 09/19 IV 0655 Lidocaine 20 ML .STK-MED ONE 09/18 1124 DC IA 09/18 1125 Lisinopril 10 MG DAILY 09/18 0900 AC 09/19 PO 0810 Lorazepam 1 MG ONE ONE 09/18 1145 DC 09/18 IV 09/18 1146 1138 Metoprolol Tartrate 12.5 MG BID 09/19 2100 AC PO Metoprolol Tartrate 6.25 MG BID 09/18 1815 DC 09/19 PO 0809 Multivitamins 1 TAB DAILY 09/18 0900 AC 09/19 PO 0810 Impression/Plan Impression/Problem List Impression: Pt is a 41 y/o M with PMH of HTN diagnosed at 27, noncompliant on medication as of two years. Pt presented to the ED on 09/15 with h/o chest pain described as heaviness, SOB and b/l jaw pain that started the day prior (09/14). Chest pain was intermittent and severe that slightly improved when sitting and worsened upon lying flat. Assesment and Plan: Respiratory: -Pt SOB and cough on admit. No SOB overnight. Lungs are CTA B/L, breathing comfortably on room air. Pt still complains of dry cough, especially during nights. Infection: -Leukocytosis, 14.6 on admit -> 12.4 latest lab (09/18). Likely reactive. Pt has been afebrile since admission. Will continue to monitor for signs of infection. Cardiac: Hypertensive Emergency: - BP was 202/132 on admit, currently 164/90. - Cardio consult on 09/18 and arterial line for BP monitoring was attempted but unsuccesful due to patient anxiety/tremulousness. - EKG showed LVH with non specific repolarization changes in the lateral leads likely related to LVH and strain. - Norvasc 10 mg PO daily - Metoprolol increased to 12.5mg on 09/19 - Continue ASA and statin - Hydralazine 10 mg IV TID PRN if BP >160 mmhg systolic or >105 mmHg diastolic. - Begin Brilinta 180 mg loading and 90 mg BID afterwards after BP stabilizes < 160-170/95-100 - Cardiac cath prior to d/c - Outpt secondary HTN workup Type II CT - Troponin trend: 0.11 -> 0.13 -> 0.13. Another one ordered to watch for trend. Hematology: - Hb/Hct has been mantaining. 14.7 -> 16.3. No acute issues. Metabolic: - Electrolytes, BUN/Cr have been WNL since admit. - Continue to monitor Alimentary: - Pt tolerating PO well, on heart healthy diet. - Episodes of diarrhea/Nausea/Vomiting resolved. Neuro: - Pt is AAOx3, no focal neurological deficits. - Will continue to monitor for neuro changes. Problem List: 1. Hypertensive emergency Pain Ratin Tomorrow's Labs & Rationales: CBC/BEP Plan DVT/Prophylaxis: mechanical, pharmacological Suman MCARTHUR,Henrietta 09/19/17 1227: Attending MD Review Statement Attending Sign Off Attending Cosign Statement: I have: examined this patient, reviewed [facility] EMR data, personally reviewd images, discussd w/resident/PA/HEALTH AND SAFETY INSPECTOR, discussed mgmt plan w/pt, agreed w/resident/ PA/HEALTH AND SAFETY INSPECTOR. Other Findings: Overall patient is doing okay. He hasn't had any more episodes of chest pain. Appreciate cardiology follow-up. Her feeling is that this is a non-ST elevation CT with severe uncontrolled hypertension. He is now on a beta samantha, Norvasc, ANKIT inhibitor with aspirin and we can start him on Brillanta once his BP comes down. The plan will be to transfer him for cardiac cath in a.m. He will need a workup for secondary causes of hypertension but that is deferred for now.
[2017-09-19 12:00] VITALS: BP 170/90
--- NOTE | 2017-09-19 13:28 | ECHOCARDIOGRAM REPORT ---
LACY ALEMAN Age: 41 : 1975 Gender: M Exam Date: 09/18/2017 08:11 Exam Location: [facility] Ht (in): 65 Wt (lb): 185 BSA: 1.99 BP: 197 / 104 Ordering Physician: Yann Curry MD Referring Physician: Yann Curry MD Technologist: Ines Delatorre [facility] Room Number: 110 Indications: Rhythm: Sinus Technical Quality: very good FINDINGS Left Ventricle Normal left ventricular size and systolic function with no obvious regional wall motion abnormalities. Normal left ventricular diastolic filling pattern for age. The ejection fraction is visually estimated at 65%. Mild concentric LVH Right Ventricle The right ventricle is normal in size and function. Right Atrium The right atrium is normal in size. Left Atrium The left atrium is normal in size. The interatrial septum is intact. Mitral Valve The mitral valve is normal in structure and function. There is no mitral regurgitation. Aortic Valve Structurally normal aortic valve without significant sclerosis or stenosis. There is no aortic regurgitation. Tricuspid Valve The tricuspid valve is normal in structure and function. There is trace tricuspid regurgitation. Pulmonary artery systolic pressure is normal. Pulmonic Valve Structurally normal pulmonic valve. There is trace pulmonic regurgitation. Pericardium Normal pericardium without effusion. No pleural effusion. Great Vessels Normal aortic root dimension. The aortic arch and great vessels are well seen and are normal. CONCLUSIONS Normal left ventricular size and systolic function with no obvious regional wall motion abnormalities. Mild concentric LVH. Normal left ventricular diastolic filling pattern for age. The ejection fraction is visually estimated at 65%. The left atrium is normal in size. The interatrial septum is intact. There is trace tricuspid regurgitation. Pulmonary artery systolic pressure is normal. Normal pericardium without effusion. Normal aortic root dimension. Gilberto Ozuna M.D. (Electronically Signed) Final Date: 19 September 2017 13:27 MEASUREMENTS (Male / Female) Normal Values 2D ECHO LV Diastolic Diameter PLAX 4.3 cm 4.2 - 5.9 / 3.9 - 5.3 cm LV Systolic Diameter PLAX 2.9 cm 2.1 - 4.0 cm LV Fractional Shortening PLAX 32.6 % 25 - 46 % LV Ejection Fraction 2D Teich 61.2 % IVS Diastolic Thickness 1.3 cm LVPW Diastolic Thickness 1.4 cm LV Relative Wall Thickness 0.6 LVOT Diameter 2.0 cm Aortic Root Diameter 2.9 cm LA Systolic Diameter LX 3.5 cm 3.0 - 4.0 / 2.7 - 3.8 cm LV Ejection Fraction MOD BP 65.4 % >= 55 % LV Diastolic Length 4C 7.6 cm 6.9 - 10.3 cm LV Diastolic Area 4C 27.7 cm LV Diastolic Volume MOD 4C 83.0 cm LV Ejection Fraction MOD 4C 66.3 % LV Stroke Volume MOD 4C 55.0 cm LV Systolic Length 4C 6.5 cm LV Systolic Area 4C 14.7 cm LV Systolic Volume MOD 4C 28.0 cm LV Ejection Fraction MOD 2C 64.4 % LV Diastolic Volume 4C AL 85.9 cm 85 - 139 / 69 - 109 cm LV Systolic Volume 4C AL 28.1 cm LV Ejection Fraction 4C AL 67.3 % LV Stroke Volume 4C AL 57.8 cm LV Ejection Fraction 2C AL 66.1 % LA Volume 44.0 cm 18 - 58 / 22 - 52 cm DOPPLER AV Peak Velocity 136.0 cm/s AV Peak Gradient 7.4 mmHg LVOT Peak Velocity 117.0 cm/s LVOT Peak Gradient 5.5 mmHg AV Area Cont Eq pk 2.7 cm Mitral E Point Velocity 66.1 cm/s Mitral A Point Velocity 85.9 cm/s Mitral E to A Ratio 0.8 MV Deceleration Time 232.0 ms TR Peak Velocity 255.0 cm/s TR Peak Gradient 26.0 mmHg PV Peak Velocity 133.0 cm/s PV Peak Gradient 7.1 mmHg LV E' Lateral Velocity 9.6 cm/s Mitral E to LV E' Lateral Ratio 6.9 LV E' Septal Velocity 6.1 cm/s Mitral E to LV E' Septal Ratio 10.8
[2017-09-19 16:00] VITALS: BP 162/90
--- NOTE | 2017-09-19 16:18 | Patient Discharge Instructions ---
Discharge Instructions General Discharge Information You were seen/treated for: Hypertension Urgency Elevated Troponins Special Instructions: Please follow up with your PCP and Food Preservation Scientist within one week of discharge. Diet Continue normal diet: Yes Recommended Diet: Heart Healthy Activity Full Activity/No Limits: Yes Acute Coronary Syndrome Inclusion Criteria At DC or during hospital stay patient has or had the following: ACS DIAGNOSIS No Discharge Core Measures Meds if any: Prescribed or Continued at Discharge Meds if any: NOT Prescribed or Continued at Discharge Congestive Heart Failure Inclusion Criteria At DC or during hospital stay patient has or had the following: CHF DIAGNOSIS No Discharge Core Measures Meds if any: Prescribed or Continued at Discharge Meds if any: NOT Prescribed or Continued at Discharge Cerebrovascular accident Inclusion Criteria At DC or during hospital stay patient has or had the following: CVA/TIA Diagnosis No Discharge Core Measures Meds if any: Prescribed or Continued at Discharge Meds if any: NOT Prescribed or Continued at Discharge Venous thromboembolism Inclusion Criteria VTE Diagnosis No VTE Type NONE VTE Confirmed by (Test) NONE Discharge Core Measures - Per Current guidelines, there needs to be overlap - treatment for the first 5 days of Warfarin therapy. - If discharged on Warfarin prior to 5 days of - overlap therapy, the patient will need to be - assessed for post discharge needs including - *Post discharge parental anticoagulation - *Warfarin and/or parental anticoagulation education - *Follow up date to check INR post discharge At least 5 days overlap therapy as Inpatient No Meds if any: Prescribed or Continued at Discharge Note: Overlap Therapy is Warfarin and Anticoagulant Meds if any: NOT Prescribed or Continued at Discharge
[2017-09-19 20:00] VITALS: BP 160/90
--- NOTE | 2017-09-19 21:18 | PN- Cardiology ---
Subjective Subjective: patient feeling well, no complaints, no chest pains. BP 160-170/90-100 mmHg. Objective Vital Signs and I&Os Vital Signs Date Time Temp Pulse Resp B/P B/P Pulse O2 O2 Flow FiO2 Mean Ox Delivery Rate 09/19 2014 84 160/90 07/ 2000 97.9 82 24 160/90 97 Room Air 09/19 1600 96 Room Air Room Air 09/19 1600 98.2 84 30 162/90 96 Room Air Room Air 09/19 1200 98.4 92 18 170/90 96 Room Air Room Air 09/19 1137 90 170/90 09/19 0810 91 168/92 09/19 0809 91 168/92 09/19 0809 91 168/92 09/19 0800 96 Room Air Room Air 09/19 0800 97.7 89 12 168/90 96 Room Air Room Air 09/19 0655 99.6 69 18 174/98 09/19 0400 99.6 77 20 164/96 98 Room Air 09/19 0000 99.3 75 18 156/96 98 Room Air 09/19 0000 98 Room Air 09/18 2200 80 22 168/96 98 Room Air Intake & Output 09/19 1600 01 0800 07/ 0000 06/30 1600 30 0800 09/18 0000 Intake Total 650 100 600 720 150 Output Total 600 350 425 150 Balance 50 100 250 295 0 Intake, IV 0 100 Intake, Oral 650 100 600 720 50 Number 0 0 Bowel Movements Output, Urine 600 350 425 150 Patient 173 lb 185 lb Weight Weight Bed scale Reported by Patient Measurement Method Physical Exam: General Appearance: no apparent distress, alert, awake, comfortable Neck: supple, full range of motion, trachea mid line (no JVD) Respiratory: normal breath sounds, chest non-tender, no respiratory distress, lungs clear Cardiovascular: regular rate/rhythm, normal peripheral pulses (absence of S3-S4) , bradycardia (apical impulse is sustained), systolic murmur Gastrointestinal: normal bowel sounds, soft, non-tender Extremities: normal capillary refill, no edema Neurologic/Psych: no motor/sensory deficits, awake, alert, oriented x 3 Current Medications: Current Medications Sig/Ludmila Start time Last Medication Dose Route Stop Time Status Admin Amlodipine Besylate 10 MG DAILY 09/18 1312 AC 09/19 PO 0809 Aspirin 81 MG DAILY 09/18 0944 AC 09/19 PO 0809 Atorvastatin Calcium 40 MG 1700 09/18 1700 AC 09/19 PO 1729 Benzonatate 100 MG TID PRN 09/19 1230 AC PO Heparin Sodium 5,000 UNIT Q8 09/18 0600 AC 09/19 (Porcine) SC 1500 Hydralazine HCl 10 MG TIDPRN PRN 09/18 1315 AC 09/19 IV 0655 Lisinopril 10 MG DAILY 09/18 0900 AC 09/19 PO 0810 Metoprolol Tartrate 12.5 MG BID 09/19 2100 AC 09/19 PO 2015 Metoprolol Tartrate 6.25 MG ONCE ONE 09/19 1115 DC 09/19 PO 09/19 1116 1137 Metoprolol Tartrate 25 MG .STK-MED ONE 09/19 1111 DC PO 09/19 1112 Metoprolol Tartrate 6.25 MG BID 09/18 1815 DC 09/19 PO 0809 Multivitamins 1 TAB DAILY 09/18 0900 AC 09/19 PO 0810 Results Last 48 Hrs of Labs/Mics: Laboratory Tests 09/19/17 1045: Troponin I 0.06 09/19/17 0500: Anion Gap 10, Estimated GFR > 60, Glucose 97, Calcium 9.4, Phosphorus 3.8, Magnesium 2.1, Total Bilirubin 0.5, AST 16 L, ALT 22, Albumin 3.9 09/18/17 0510: Anion Gap 11, Estimated GFR > 60, Glucose 86, Calcium 9.3, Phosphorus 4.6 H, Magnesium 2.0, Total Bilirubin 0.7, AST 17, ALT 27, Albumin 4.0, Triglycerides 108, Cholesterol 134, LDL Cholesterol, Calc 79, HDL Cholesterol 34 L, Cholesterol/HDL Ratio 4, PT 12.1, INR 1.11, CBC w Diff NO MAN DIFF REQ, RBC 4.75 , MCV 91.9, MCH 30.9, MCHC 33.6, RDW 13.1, MPV 8.0, Gran % 69.0, Lymphocytes % 18.9 L, Monocytes % 10.3 H, Eosinophils % 1.2, Basophils % 0.6, Absolute Granulocytes 8.6 H, Absolute Lymphocytes 2.3, Absolute Monocytes 1.3 H, Absolute Eosinophils 0.1, Absolute Basophils 0.1 09/18/17 0125: Troponin I 0.13 *H 09/18/17 0039: Urine Opiates Screen < 100, Methadone Screen < 40, Barbiturate Screen < 60, Ur Phencyclidine Scrn < 6.00, Amphetamines Screen < 100, U Benzodiazepines Scrn > 800 H, Urine Cocaine Screen < 50, Urine Cannabis Screen 77.00 H Microbiology 09/18 0130 UPPER RESP: Surveillance Culture - COMP Assessment/Plan Assessment/Plan Hypertensive emergency in young patient with severe hypertension since his early twenties, not medically treated due to lack of insurance/financial restrictions. Type 2 NSTEMI with strain pattern on EKG, with very likely significant underlying CAD given his strong family history and significant EKG changes. I would definitely view him as a high risk CAD patient and will request cardiac catheterization tomorrow/wednesday. Much better BP at the moment permitting high doses of antiplatelets/heparin. I would start brilinta 180 mg X 1 tomorrow morning and 90 mg po bid thereafter in addition to asa 81mg. Patient should have an outpatient investigation for causes of secondary hypertension. Continue telemetry? Yes
[2017-09-20] VITALS: BP 140/80
[2017-09-20 04:00] VITALS: BP 130/80
[2017-09-20 06:34] LABS: ABSOLUTE BASOPHIL COUNT 0.1 /CUMM (0.0-0.2); ABSOLUTE EOSINOPHIL COUNT 0.2 /CUMM (0.0-0.7); ABSOLUTE GRANULOCYTE CT 7.1 /CUMM (1.4-6.5); ABSOLUTE LYMPH COUNT 2.8 /CUMM (1.2-3.4); ABSOLUTE MONOCYTE COUNT 1.1 /CUMM (0.10-0.60); BASOPHIL % 0.7 % (0.0-2.0); EOSINOPHIL % 1.8 % (0-5); GRANULOCYTE % 63.3 % (42.2-75.2); HEMATOCRIT 44.9 % (42-52); MEAN CORPUSCULAR HGB 30.7 PG (27.0-31.0); MEAN CORPUSCULAR HGB CONC 33.4 G/DL (33.0-37.0); MEAN CORPUSCULAR VOLUME 91.9 FL (80.0-94.0); MEAN PLATELET VOLUME 8.1 FL (7.4-10.4); PLATELET COUNT 241 /CUMM (130-400); RBC DISTRIBUTION WIDTH 13.4 % (11.5-14.5); RED BLOOD CELL CT 4.88 /CUMM (4.70-6.10); WHITE BLOOD CELL COUNT 11.1 /CUMM (4.8-10.8)
--- NOTE | 2017-09-20 07:10 | PN- Resident CRCU ---
Nathan Madrid 09/20/17 0710: Subjective HPI/CRCU Issues: Hypertensive Emergency Pt seen and examined at bedside. He was talkative, cooperative. Not in any distress. Pt c/o sore throat/cough. Denies chest pain, abdominal pain, N/V/D, changes in his vision. 24 Hour Events: No events overnight Objective Vital Signs & I&O Last 8 Hrs of Vitals and I&O: Vital Signs Date Time Temp Pulse Resp B/P B/P Pulse O2 O2 Flow FiO2 Mean Ox Delivery Rate 09/20 0400 97.7 82 20 130/80 97 09/20 0000 97.9 80 16 140/80 95 Room Air 09/19 2015 84 160/90 07 2000 97.9 82 24 160/90 97 Room Air 09/19 1600 96 Room Air Room Air 09/19 1600 98.2 84 30 162/90 96 Room Air Room Air 09/19 1200 98.4 92 18 170/90 96 Room Air Room Air 09/19 1137 90 170/90 / 0810 91 168/92 09/19 0809 91 168/92 09/19 0809 91 168/92 09/19 0800 96 Room Air Room Air 09/19 0800 97.7 89 12 168/90 96 Room Air Room Air Exam General Appearance: well developed/nourished, no apparent distress, alert, awake , comfortable Head: atraumatic, normal appearance Ears, Nose, Throat: normal pharynx, moist mucus membranes Neck: normal inspection, supple, No LAD Respiratory: normal breath sounds, no respiratory distress, lungs clear Cardiovascular: regular rate/rhythm Gastrointestinal: normal bowel sounds, soft, non-tender Extremities: normal inspection, no edema Cranial Nerves: normal hearing, normal speech Current Medications: Current Medications Sig/Ludmila Start time Last Medication Dose Route Stop Time Status Admin Amlodipine Besylate 10 MG DAILY 09/18 1312 AC 09/19 PO 0809 Aspirin 81 MG DAILY 09/18 0944 AC 09/19 PO 0809 Atorvastatin Calcium 40 MG 1700 09/18 1700 AC 09/19 PO 1729 Benzonatate 100 MG TID PRN 09/19 1230 AC PO Heparin Sodium 5,000 UNIT Q8 09/18 0600 AC 09/20 (Porcine) SC 0557 Hydralazine HCl 10 MG TIDPRN PRN 09/18 1315 AC 09/19 IV 0655 Lisinopril 10 MG DAILY 09/18 0900 AC 09/19 PO 0810 Metoprolol Tartrate 12.5 MG BID 09/19 2100 AC 09/19 PO 2015 Metoprolol Tartrate 6.25 MG ONCE ONE 09/19 1115 DC 09/19 PO 09/19 1116 1137 Metoprolol Tartrate 25 MG .STK-MED ONE 09/19 1111 DC PO 09/19 1112 Metoprolol Tartrate 6.25 MG BID 09/18 1815 DC 09/19 PO 0809 Multivitamins 1 TAB DAILY 09/18 0900 AC 09/19 PO 0810 Impression/Plan Impression/Problem List Impression: Pt is a 41 y/o M with PMH of HTN diagnosed at 27, noncompliant on medication as of two years. Pt presented to the ED on 09/15 with h/o chest pain described as heaviness, SOB and b/l jaw pain that started the day prior (09/14). Chest pain was intermittent and severe that slightly improved when sitting and worsened upon lying flat. Assesment and Plan: Respiratory: -Lungs are CTA B/L, breathing comfortably on room air. Pt complains of dry cough and throat pain, especially during nights. Tessalone Caps PRN ordered. Infection: -Leukocytosis, 14.6 on admit -> 12.4 -> 11.1 latest lab (09/20). This is likely reactive in etiology- Downward trend and being afebrile since admission support this assertion. Will continue to monitor for signs of infection. Cardiac: Hypertensive Emergency: - BP was 202/132 on admit, currently 130/80 and mantaining below 160/90. - Cardio consult on 09/18 where an arterial line for BP monitoring was attempted but unsuccesful due to patient anxiety/tremulousness. - EKG showed LVH with non specific repolarization changes in the lateral leads likely related to LVH and strain. - Norvasc 10 mg PO daily - Metoprolol increased to 12.5mg on 09/19 - Continue ASA and statin - Hydralazine 10 mg IV TID PRN if BP >160 mmhg systolic or >105 mmHg diastolic. - Brilinta 180 mg loading dose given, 90 mg BID after - Patient transfer to [facility] for Cardiac Cath - Outpt secondary HTN workup Type II WI - Troponin trend: 0.11 -> 0.13 -> 0.13 -> 0.06. Trend suggest no active areas of myocardial ischemia. Hematology: - Hb/Hct has been mantaining. 14.7 -> 16.3 -> 15.0 No acute issues. Metabolic: - Electrolytes, BUN/Cr have been WNL since admit. - Continue to monitor Alimentary: - Pt tolerating PO well, on heart healthy diet. - Episodes of diarrhea/Nausea/Vomiting resolved. Neuro: - Pt is AAOx3, no focal neurological deficits. - Will continue to monitor for any sudden neurological changes. Problem List: 1. Hypertensive emergency Pain Ratin Tomorrow's Labs & Rationales: . Plan DVT/Prophylaxis: mechanical, pharmacological Jimmy MCARTHUR,Lisa 09/20/17 1045: Attending MD Review Statement Attending Sign Off Attending Cosign Statement: I have: examined this patient, reviewed aval EMR data, personally reviewd images, discussd w/resident/PA/BASKET MENDER, discussed mgmt plan w/jewell, discussed mgmt plan w/pt, agreed w/resident/PA/BASKET MENDER, amended to note. Other Findings: Patient seen and examined, currently denies any complaints. Denies any chest pain, shortness of breath. His blood pressure is still on the high side. Patient is admitted with chest pain and found to have NSTEMI as well as uncontrolled hypertension. Patient has been followed by cardiology. He was started on Brilinta along with ASA as per cardiology. Patient is going to [facility] for cardiac catheterization. He has an accepting doctor and he will be transferred today for cardiac cath.
[2017-09-20 08:00] VITALS: BP 170/102
[2017-09-20 08:30] VITALS: BP 170/102
--- NOTE | 2017-09-20 09:10 | Discharge Summary ---
Visit Information Visit Dates Admission Date: 09/17/17 Discharge Date: 09/20/17 Hospital Course Course Attending Physician: Lisa Marquez MD Primary Care Physician: Patient Has No Primary Care Dr Hospital Course: 41 year old male with past medical history of hypertension diagnosed at age 27, previously taking HCTZ 25mg but stopped for several years because of lack of insurance/PCP presented with complaints of chills, throat, and jaw pain, with severe chest pain, tightness, and dyspnea. He also reported his father had HTN and from [place] in his 40s. On arrival, he had a blood pressure of >220/120 and a heart of 93. EKG showed LVH and LV strain. He had multiple CT images from head to pelvis without pathology and a normal aorta without dissection. He was treated with intravenous labetolol, lisinopril, and amlodipine with adequate improvement of his blood pressure to systolic measurements ranging from 150-180s and diastolics ranging from 90-100. Troponins were mildly elevated to 0.11 and peaked at 0.13 then decreased. His echocardiogram showed mild concentric LVH, no wall motion abnormalities, LVEF 65%, no significant valvular disease. Cardiology was consulted and the patient was also started on metoprolol, atorvastatin, aspirin and given 180mg of Brilinta the morning of transfer. He was high risk for CAD given his family history and premature hypertension therefore cardiology recommended transfer to [facility] under Dr. Morgan for coronary angiography. He should have an outpatient work up for secondary causes of hypertension. 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 Normal left ventricular diastolic filling pattern for age. The ejection fraction is visually estimated at 65%. Mild concentric LVH Right Ventricle The right ventricle is normal in size and function. Right Atrium The right atrium is normal in size. Left Atrium The left atrium is normal in size. The interatrial septum is intact. Mitral Valve The mitral valve is normal in structure and function. There is no mitral regurgitation. Aortic Valve Structurally normal aortic valve without significant sclerosis or stenosis. There is no aortic regurgitation. Tricuspid Valve The tricuspid valve is normal in structure and function. There is trace tricuspid regurgitation. Pulmonary artery systolic pressure is normal. Pulmonic Valve Structurally normal pulmonic valve. There is trace pulmonic regurgitation. Pericardium Normal pericardium without effusion. No pleural effusion. Great Vessels Normal aortic root dimension. The aortic arch and great vessels are well seen and are normal. CONCLUSIONS Normal left ventricular size and systolic function with no obvious regional wall motion abnormalities. Mild concentric LVH. Normal left ventricular diastolic filling pattern for age. The ejection fraction is visually estimated at 65%. The left atrium is normal in size. The interatrial septum is intact. There is trace tricuspid regurgitation. Pulmonary artery systolic pressure is normal. Normal pericardium without effusion. Normal aortic root dimension. Gilberto Ozuna M.D. (Electronically Signed) Final Date: 19 September 2017 13:27 MEASUREMENTS (Male / Female) Normal Values 2D ECHO LV Diastolic Diameter PLAX 4.3 cm 4.2 - 5.9 / 3.9 - 5.3 cm LV Systolic Diameter PLAX 2.9 cm 2.1 - 4.0 cm LV Fractional Shortening PLAX 32.6 % 25 - 46 % LV Ejection Fraction 2D Teich 61.2 % IVS Diastolic Thickness 1.3 cm LVPW Diastolic Thickness 1.4 cm LV Relative Wall Thickness 0.6 LVOT Diameter 2.0 cm Aortic Root Diameter 2.9 cm LA Systolic Diameter LX 3.5 cm 3.0 - 4.0 / 2.7 - 3.8 cm LV Ejection Fraction MOD BP 65.4 % >= 55 % LV Diastolic Length 4C 7.6 cm 6.9 - 10.3 cm LV Diastolic Area 4C 27.7 cm LV Diastolic Volume MOD 4C 83.0 cm LV Ejection Fraction MOD 4C 66.3 % LV Stroke Volume MOD 4C 55.0 cm LV Systolic Length 4C 6.5 cm LV Systolic Area 4C 14.7 cm LV Systolic Volume MOD 4C 28.0 cm LV Ejection Fraction MOD 2C 64.4 % LV Diastolic Volume 4C AL 85.9 cm 85 - 139 / 69 - 109 cm LV Systolic Volume 4C AL 28.1 cm LV Ejection Fraction 4C AL 67.3 % LV Stroke Volume 4C AL 57.8 cm LV Ejection Fraction 2C AL 66.1 % LA Volume 44.0 cm 18 - 58 / 22 - 52 cm DOPPLER AV Peak Velocity 136.0 cm/s AV Peak Gradient 7.4 mmHg LVOT Peak Velocity 117.0 cm/s LVOT Peak Gradient 5.5 mmHg AV Area Cont Eq pk 2.7 cm Mitral E Point Velocity 66.1 cm/s Mitral A Point Velocity 85.9 cm/s Mitral E to A Ratio 0.8 MV Deceleration Time 232.0 ms TR Peak Velocity 255.0 cm/s TR Peak Gradient 26.0 mmHg PV Peak Velocity 133.0 cm/s PV Peak Gradient 7.1 mmHg LV E' Lateral Velocity 9.6 cm/s Mitral E to LV E' Lateral Ratio 6.9 LV E' Septal Velocity 6.1 cm/s Mitral E to LV E' Septal Ratio 10.8 EXAM TYPE: CAT - CT ABD & PELVIS ANGIOGRAM; CTA CHEST-AORTIC DISSECTION EXAMINATION: CT ANGIOGRAM CHEST, ABDOMEN AND PELVIS CLINICAL INFORMATION: Chest pain. Recent travel. Positive troponin. COMPARISON: Chest x-ray 09/17/2017 TECHNIQUE: Noncontrast axial images obtained through the chest. Multiple axial images were obtained through the chest abdomen and pelvis following the administration of 95 mL of Optiray 320 intravenous contrast. Coronal and sagittal reformatted images performed at CT scanner. No 3-D imaging. DLP: 1229.06 mGy-cm. FINDINGS: VASCULAR: The thoracic aorta is normal. There is no dissection. There is no aneurysm. There is mild atherosclerotic vascular wall calcifications of the abdominal aorta. There is normal enhancement of the major branch vessels at the thoracic aortic arch as well as in the abdomen and pelvis. The pulmonary arteries are well opacified. No evidence of central pulmonary embolism. There are coronary artery calcifications. CT CHEST: MEDIASTINUM: No mediastinal mass. No significant lymphadenopathy. There is no pericardial effusion. LUNGS: The lungs are clear. No nodule or infiltrate. Central bronchial airways open. FLUID: There is no pericardial effusion. There is no pleural effusion. AXILLA: No significant lymphadenopathy. CT SCAN ABDOMEN PELVIS: LIVER, GALLBLADDER, AND BILIARY TREE: The liver is normal in size, shape, and attenuation. No focal hepatic lesion or biliary ductal dilatation is present. The gallbladder is unremarkable with no evidence of radiopaque gallstones, gallbladder wall thickening, or obvious pericholecystic inflammatory changes. PANCREAS: Unremarkable. SPLEEN: Unremarkable. ADRENAL GLANDS: 1.6 cm fatty adrenal adenoma involving the right adrenal gland. Left adrenal gland is normal. KIDNEYS AND URETERS: The kidneys are normal in size, shape, and attenuation. No hydronephrosis, hydroureter, or calculi seen. No perinephric stranding. BLADDER: Unremarkable. GASTROINTESTINAL TRACT: The small and large bowel are unremarkable. The appendix is unremarkable. ABDOMINAL WALL: No significant hernia is appreciated. LYMPH NODES: Normal. PELVIC VISCERA: Unremarkable. OSSEOUS STRUCTURES: Unremarkable. IMPRESSION: Normal CT scan of the chest, abdomen pelvis. Normal aorta. CT Head SERVICE DATE: 09/17/17 EXAM TYPE: CAT - CT HEAD WO IV CONTRAST EXAMINATION: CT HEAD WITHOUT CONTRAST CLINICAL INFORMATION: Hypertension, headache COMPARISON: None TECHNIQUE: Contiguous axial imaging was performed from the skull base to vertex without intravenous administration of contrast. DLP: 613 mGy-cm FINDINGS: No intra-axial or extra-axial hemorrhage. No acute territorial infarct. Ventricles and sulci appear normal. Preservation of chavez-white matter differentiation. No mass, mass effect, or midline shift. No fracture. The mastoid air cells and visualized paranasal sinuses are clear. IMPRESSION: No acute intracranial pathology. Disposition Summary Disposition Principal Diagnosis: Hypertensive emergency with Type II NSTEMI Additional Diagnosis: Hypertension Discharge Disposition: other general hospital Discharge Instructions General Discharge Information Code Status: Full Code Patient's Diet: Heart healthy, 2 gram sodium restriction Patient's Activity: As tolerated Follow-Up Instructions/Appts: Please follow up with your primary care physician. You were given a referral for Dr. Marino. Please follow up with your train gateman. You were given a referral to Dr. Ozuna. Medications at Discharge Discharge Medications: Start taking the following new medications: Atorvastatin Calcium (Atorvastatin Calcium) 40 MG TABLET 40 Milligram ORAL 5 PM Qty = 30 No Refills Comments: Last Taken: 09/19/17 Time: 5:00 PM Metoprolol Tartrate (Metoprolol Tartrate) 25 MG TABLET 25 Milligram ORAL TWICE DAILY Qty = 60 No Refills Comments: Last Taken: 09/20/17 Time: 8:30 AM Amlodipine Besylate (Norvasc) 10 MG TABLET 10 Milligram ORAL DAILY Qty = 30 No Refills Comments: Last Taken: 09/20/17 Time: 8:30 AM Lisinopril (Lisinopril) 10 MG TABLET 10 Milligram ORAL DAILY Qty = 30 No Refills Comments: Last Taken: 09/20/17 Time: 8:30 AM Aspirin (Aspirin*) 81 MG TAB.CHEW 81 Milligram ORAL DAILY Qty = 30 No Refills Comments: Last Taken: 09/20/17 Time: 8:30 AM Ticagrelor (Brilinta) 90 MG TABLET 90 Milligram ORAL TWICE DAILY Qty = 60 No Refills Comments: Last Taken:09/20/17 Time: 0830 AM Copies To: Sulma MCARTHUR,Gilberto; Jamila MCARTHUR,Ron Salazar Attending MD Review Statement Documenting Attending: Jimmy MCARTHUR,Lisa
[2017-09-20] MEDS ORDERED: ASPIRIN81 M4 PO (09:15)
[2017-09-20] MEDS ORDERED: NORVASC10 M1 PO (09:15)
[2017-09-20] MEDS ORDERED: LISINOPRIL10 M1 PO (09:15)
[2017-09-20] MEDS ORDERED: ATORVASTATIN CA40 M1 PO (09:15)
[2017-09-20] MEDS ORDERED: METOPROLOL TART25 M1 PO (09:15)
[2017-09-20] MEDS ORDERED: BRILINTA90 M1 PO (09:35)
--- NOTE | 2017-09-20 22:29 | PN- Cardiology ---
Subjective Subjective: Patient has no complaints. No chest pains since i last saw him. BP mostly 160/95, with a few unsustained values ad 190/100. Patient scheduled transfer to [facility] for coronary cath this morning, with dr Morgan, with whom i spoke this morning. Objective Vital Signs and I&Os Vital Signs Date Time Temp Pulse Resp B/P B/P Pulse O2 O2 Flow FiO2 Mean Ox Delivery Rate 09/21 0730 71 16 170/102 09/20 0830 71 16 170/102 09/20 0830 71 16 170/102 09/20 0800 97 Room Air 09/20 0800 97.8 71 16 170/102 97 Room Air 09/20 0400 97.7 82 20 130/80 97 09/20 0000 97.9 80 16 140/80 95 Room Air Intake & Output 09/20 1600 09/20 0800 09/20 0000 09/19 1600 09/19 0800 09/19 0000 Intake Total 0 250 650 100 600 Output Total 400 600 350 Balance -400 250 50 100 250 Intake, IV 0 0 Intake, Oral 0 250 650 100 600 Number 0 Bowel Movements Output, Urine 400 600 350 Patient 183 lb Weight Weight Bed scale Measurement Method Physical Exam: General Appearance: no apparent distress, alert, awake, comfortable Neck: supple, full range of motion, trachea mid line (no JVD) Respiratory: normal breath sounds, chest non-tender, no respiratory distress, lungs clear Cardiovascular: regular rate/rhythm, absence of murmur, normal peripheral pulses (absence of S3-S4), (apical impulse is sustained) Gastrointestinal: normal bowel sounds, soft, non-tender Extremities: normal capillary refill, no edema Neurologic/Psych: no motor/sensory deficits, awake, alert, oriented x 3 Current Medications: Current Medications Sig/Ludmila Start time Last Medication Dose Route Stop Time Status Admin Amlodipine Besylate 10 MG DAILY 09/18 1312 DCD 09/20 PO 0830 Aspirin 81 MG DAILY 09/18 0944 DCD 09/20 PO 0831 Atorvastatin Calcium 40 MG 1700 09/18 1700 DCD 09/19 PO 1729 Benzonatate 100 MG TID PRN 09/19 1230 DCD PO Heparin Sodium 5,000 UNIT Q8 09/18 0600 DCD 09/20 (Porcine) SC 0557 Hydralazine HCl 10 MG TIDPRN PRN 09/18 1315 DCD 09/19 IV 0655 Lisinopril 10 MG DAILY 09/18 09 DCD 09/20 PO 0830 Metoprolol Tartrate 12.5 MG BID 09/19 2099 DCD 09/20 PO 0830 Multivitamins 1 TAB DAILY 09/18 0900 DCD 09/20 PO 0829 Ticagrelor 90 MG BID 09/20 2100 DCD PO Ticagrelor 180 MG ONCE ONE 09/20 814 DC 09/20 PO 09/20 0816 0829 Results Last 48 Hrs of Labs/Mics: Laboratory Tests 09/20/17 0600: Anion Gap 11, Estimated GFR > 60, BUN/Creatinine Ratio 26.3 H, CBC w Diff NO MAN DIFF REQ, RBC 4.88, MCV 91.9, MCH 30.7, MCHC 33.4, RDW 13.4, MPV 8.1, Gran % 63.3, Lymphocytes % 24.8, Monocytes % 9.4 H, Eosinophils % 1.8, Basophils % 0.7 , Absolute Granulocytes 7.1 H, Absolute Lymphocytes 2.8, Absolute Monocytes 1.1 H, Absolute Eosinophils 0.2, Absolute Basophils 0.1 09/19/17 1045: Troponin I 0.06 09/19/17 0500: Anion Gap 10, Estimated GFR > 60, Glucose 97, Calcium 9.4, Phosphorus 3.8, Magnesium 2.1, Total Bilirubin 0.5, AST 16 L, ALT 22, Albumin 3.9 Assessment/Plan Assessment/Plan Hypertensive emergency now resolved, with remaining hypertension requiring further titration of medication. Type 2 NSTEMI with high risk factora: patient scheduled for coronary cath today. Should remain on brilinta 90 bid, ASA 81 daily, metorpolol 25 bid, lisinorpil 10 , and add htcz as next agent vs amlodipine. Continue telemetry? Yes
== END 2017-09-20 11:02 | disposition short-term general hospital (02) | DRG 190 ==
LOC: ERH 15:26 → ERHI 21:36 → ENRESERV 22:15 → CRI 09-18 00:55 → ENTRNSPT 09-18 10:55 → CMPTRNSPT 09-18 11:59 → CRI 09-20 08:19
PROVIDERS: Physician Assistant Medical; Preventive Medicine Public Health & General Preventive Medicine; Student in an Organized Health Care Education/Training Program
DX: I21.A1 Myocardial infarction type 2 (principal); I16.1 Hypertensive emergency; Z91.14 Patient's other noncompliance with medication regimen; I10 Essential (primary) hypertension; G89.29 Other chronic pain; M54.9 Dorsalgia, unspecified; Z82.49 Family history of ischemic heart disease and other diseases of the circulatory system; F17.210 Nicotine dependence, cigarettes, uncomplicated
CPT/HCPCS: CCU; ERO; 36415; 71046; 74174; 80307; 82436; 93005; 93010; 93306; J0360; J1644; J2001; J2060; J3490

== ENCOUNTER 2017-11-11 06:52 | Observation (INO) | payer OTHER ==
[~2017-11-11] VITALS: Ht 165.1 cm; Wt 77.1 kg
[~2017-11-11 06:52] MED LIST: ASPIRIN81 M4 PO; ATORVASTATIN CA40 M1 PO; BRILINTA90 M1 PO; LISINOPRIL10 M1 PO; METOPROLOL TART25 M1 PO; NORVASC10 M1 PO
--- NOTE | 2017-11-11 07:15 | ED CARDIAC/CP/PALPITATIONS ---
History of Present Illness General Chief Complaint: Chest Pain Stated Complaint: PT C/O CHEST PAIN... CARDIAC HX, STENTS Source: patient, family, old records Exam Limitations: no limitations Vital Signs & Intake/Output Vital Signs & Intake/Output Vital Signs Date Time Temp Pulse Resp B/P B/P Pulse O2 O2 Flow FiO2 Mean Ox Delivery Rate 11/11 1021 98.4 68 18 109/69 98 Room Air 11/11 0843 97.4 69 20 127/77 97 Room Air 11/11 0728 98 Nasal 2.0L Cannula 11/11 0655 96.0 67 18 136/88 98 Room Air Room Air Allergies Coded Allergies: No Known Allergies (09/17/17) Reconcile Medications Amlodipine Besylate (Norvasc) 10 MG TABLET 10 MG PO DAILY High Blood Pressure Aspirin (Aspirin*) 81 MG TAB.CHEW 81 MG PO DAILY [facility] Atorvastatin Calcium 40 MG TABLET 40 MG PO 1700 [facility] Lisinopril 10 MG TABLET 10 MG PO DAILY High Blood Pressure Metoprolol Tartrate 25 MG TABLET 25 MG PO BID High Blood Pressure Ticagrelor (Brilinta) 90 MG TABLET 90 MG PO BID [facility] Triage Nurses Notes Reviewed? yes HPI: Patient is 2 weeks status post MT with 2 stents. Yesterday morning the patient arrived at work and developed a substernal chest pain that he described as sharp and stabbing. The pain lasted approximately 1 minute and then went away however throughout the resuscitative just felt very weak and fatigued. Patient slept well last night and then again went to work this morning and again developed this time a chest pressure feeling like somebody was sitting on his chest. That pressure is sensation lasted approximately 10 minutes before going away and he currently still feels weak and fatigued. He denies any shortness of breath. There is no diaphoresis. There was no radiation. There are no aggravating or mitigating factors. At its worst is rated as a 7 out of 10 and is currently a 1 out of 10. Past History Travel History Traveled to [place] past 21 day No Medical History Any Pertinent Medical History? 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 Hx Contributory? No Review of Systems Review of Systems Constitutional: Reports: see HPI, weakness. EENTM: Reports: no symptoms. Respiratory: Reports: no symptoms. Cardiovascular: Reports: see HPI, chest pain. GI: Reports: no symptoms. Genitourinary: Reports: no symptoms. Musculoskeletal: Reports: no symptoms. Skin: Reports: no symptoms. Neurological/Psychological: Reports: no symptoms. Hematologic/Endocrine: Reports: no symptoms. Immunologic/Allergic: Reports: no symptoms. All Other Systems: Reviewed and Negative Physical Exam Physical Exam General Appearance: well developed/nourished, alert, awake Head: atraumatic, normal appearance Eyes: Bilateral: PERRL, EOMI. Ears, Nose, Throat: normal pharynx, normal ENT inspection, hearing grossly normal Neck: normal inspection, supple, full range of motion Respiratory: normal breath sounds, chest non-tender, no respiratory distress, lungs clear Cardiovascular: regular rate/rhythm, normal peripheral pulses Gastrointestinal: normal bowel sounds, soft, non-tender, no organomegaly Back: normal inspection, normal range of motion Extremities: normal inspection, normal capillary refill, normal range of motion, no edema Neurologic/Psych: no motor/sensory deficits, awake, alert, oriented x 3, normal mood/affect Skin: intact, normal color, warm/dry Core Measures ACS in differential dx? Yes No ASA d/t GIVEN CVA/TIA Diagnosis No Sepsis Present: No Sepsis Focused Exam Completed? No Progress Differential Diagnosis: AMI, cholecystitis, costochondritis, myocarditis, pericarditis Plan of Care: Orders Procedure Date/time Status Nothing by Mouth 11/[address] in observation 11/11 1025 Active ED Holding Orders 11/11 1025 Active Vital Signs 11/11 1025 Active Code Status 11/11 1025 Active DIPYRIDAMOLE STRESS W/NUC IMAG 11/11 0937 Active Telemetry/Mysql Database Developer 11/11 0714 Active URINE DRUG SCREEN FOR ER ONLY 11/11 0714 Complete URINALYSIS 08/23 0714 Complete TROPONIN LEVEL 11/11 713 Complete PHOSPHORUS 11/11 713 Complete MAGNESIUM 11/11 713 Complete ETHANOL 11/11 713 Complete D-DIMER 11/11 713 Complete COMPREHENSIVE METABOLIC PANEL 11/11 713 Complete CREATINE PHOSPHOKINASE 11/11 713 Complete CBC WITHOUT DIFFERENTIAL 11/11 713 Complete EKG 11/11 0654 Active Current Medications Sig/Ludmila Start time Last Medication Dose Stop Time Status Admin Dipyridamole 45 MG ONE 11/11 0000 NR (Persantine I.v. 5MG 11/11 2359 Per Ml (10ML [place])) Dextrose/Water 31 ML (D5w (Persantine Stress Test)) Laboratory Tests 11/11/17 0835: Urine Opiates Screen < 100, Methadone Screen < 40, Barbiturate Screen < 60, Ur Phencyclidine Scrn < 6.00, Amphetamines Screen < 100, U Benzodiazepines Scrn < 85, Urine Cocaine Screen < 50, Urine Cannabis Screen > 80.00 H, Urine Color YEL , Urine Clarity CLEAR, Urine pH 6.0, Ur Specific [place] 1.025, Urine Protein NEG, Urine Ketones NEG, Urine Nitrite NEG, Urine Bilirubin NEG, Urine Urobilinogen 0.2, Ur Leukocyte Esterase NEG, Ur Microscopic EXAM NOT REQUIRED, Urine Hemoglobin NEG, Urine Glucose NEG 11/11/17 0725: Anion Gap 8, Estimated GFR > 60, BUN/Creatinine Ratio 21.1, Glucose 108 H, Calcium 9.8, Phosphorus 3.8, Magnesium 2.1, Total Bilirubin 0.4, AST 35, ALT 59, Alkaline Phosphatase 65, Creatine Kinase 96, Troponin I < 0.01, Total Protein 7.8, Albumin 4.5, Globulin 3.3, Albumin/Globulin Ratio 1.4, D-Dimer High Sensitivty < 200, CBC w Diff NO MAN DIFF REQ, RBC 4.43 L, MCV 91.3, MCH 31.4 H , MCHC 34.4, RDW 13.5, MPV 7.5, Gran % 61.9, Lymphocytes % 25.6, Monocytes % 9.8 H, Eosinophils % 2.1, Basophils % 0.6, Absolute Granulocytes 4.9, Absolute Lymphocytes 2.0, Absolute Monocytes 0.8 H, Absolute Eosinophils 0.2, Absolute Basophils 0, Serum Alcohol < 10.0 Diagnostic Imaging: Viewed by Me: Radiology Read. Discussed w/RAD: Radiology Read. 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 COMPARISON: Chest x-ray 09/17/2017. TECHNIQUE: Portable frontal 85 degrees semiupright view of the chest was obtained. FINDINGS: The lung romano are well expanded and appear clear bilaterally. The cardiac silhouette is normal. There are no pleural effusions or pneumothorax. The central pulmonary vasculature is normal. The hilar regions appear normal. There are degenerative changes at the right acromioclavicular joint. There are no acute osseous findings. IMPRESSION: 1. There are no acute cardiopulmonary findings. DICTATED BY: Ankit Rueda MD DATE/TIME DICTATED:11/11/17800 BLADE BENDER FURNACE TENDER:TODD DATE/TIME TRANSCRIBED:11/11/17800 CONFIDENTIAL, DO NOT COPY WITHOUT APPROPRIATE AUTHORIZATION. <Electronically signed in Other Vendor System> SIGNED BY: Ankit Rueda MD 11/11/17805 Initial ED EKG: NSR, nonspecific ST T wave chg Prior EKG: unchanged Rhythm Strip: normal sinus rhythm Comments: Discussed with Dr. GUERRERO, she is on her way in to see him here in the emergency department. Departure Departure Disposition: STILL A PATIENT Condition: Stable Clinical Impression Primary Impression: ACS (acute coronary syndrome) Referrals: Patient Has No Primary Care Dr (PCP/Family) Departure Forms: Customer Survey General Discharge Information Observation Note Spoke With: Laura MCARTHUR,Faye Physician Advisor Notified: PRISCA MCARTHUR,PHILLY [facility] Patient In: Non-ED OBS Care Area Rationale for Observation: My rational for observation is as follows [telemetry observation in the setting of chest pain after a recent MT requiring 2 stents. Patient to have a nuclear stress test and further evaluation and treatment depending on that result.]. Critical Care Note Critical Care Note Critical Care Time: mins: (90 MIN)
[2017-11-11 08:03] LABS: ABSOLUTE BASOPHIL COUNT 0 /CUMM (0.0-0.2); ABSOLUTE EOSINOPHIL COUNT 0.2 /CUMM (0.0-0.7); ABSOLUTE GRANULOCYTE CT 4.9 /CUMM (1.4-6.5); ABSOLUTE MONOCYTE COUNT 0.8 /CUMM (0.10-0.60); BASOPHIL % 0.6 % (0.0-2.0); EOSINOPHIL % 2.1 % (0-5); GRANULOCYTE % 61.9 % (42.2-75.2); HEMATOCRIT 40.5 % (42-52); MEAN CORPUSCULAR HGB 31.4 PG (27.0-31.0); MEAN CORPUSCULAR HGB CONC 34.4 G/DL (33.0-37.0); MEAN CORPUSCULAR VOLUME 91.3 FL (80.0-94.0); MEAN PLATELET VOLUME 7.5 FL (7.4-10.4); PLATELET COUNT 308 /CUMM (130-400); RBC DISTRIBUTION WIDTH 13.5 % (11.5-14.5); RED BLOOD CELL CT 4.43 /CUMM (4.70-6.10); WHITE BLOOD CELL COUNT 7.9 /CUMM (4.8-10.8)
--- NOTE | 2017-11-11 08:06 | RADIOLOGY REPORT ---
EXAMINATION: XR PORTABLE CHEST CLINICAL INFORMATION: Chest pain. COMPARISON: Chest x-ray 09/17/2017. TECHNIQUE: Portable frontal 85 degrees semiupright view of the chest was obtained. FINDINGS: The lung romano are well expanded and appear clear bilaterally. The cardiac silhouette is normal. There are no pleural effusions or pneumothorax. The central pulmonary vasculature is normal. The hilar regions appear normal. There are degenerative changes at the right acromioclavicular joint. There are no acute osseous findings. IMPRESSION: 1. There are no acute cardiopulmonary findings.
--- NOTE | 2017-11-11 11:10 | History & Physical ---
Zina Limon 11/11/17 1110: General Information and HPI MD Statement: I have seen and personally examined LACY SUTTON and documented this H&P. The patient is a 41 year old M who presented with a patient stated chief complaint of chest pain Source of Information: patient, old records Exam Limitations: no limitations History of Present Illness: Mr Sutton is a 41 year old man w/ a PMHx of hypertension(dx'ed age 27 yrs), recent hospital admission in 09/17/2017-09/20/2017 for the management of NSTEMI, and hypertensive urgency after which he was transferred to [facility] for cardiac catheterization and underwent successful stent placement MARILYN x 2 to CFX with excellent results, and was also noted to have 60-70% proximal LAD stenosis at the origin of S1 with noncritical fractional flow reserve 0.87 which was not stented was noted to be in his usual state of health until 24 hours ago. He came to the hospital with a chief concern of chest pain that began the day prior to admission. Sharp chest pain started when he was going to work, which lasted for approximately 30 sec, located in the center of the chest, with no radiation or diaphoresis. During the day, he reported increasing fatigue and weak. Did not have any dyspnea, palpitations, lightheadedness at that time. He went to bed as usual, and woke up this a.m., with chest discomfort, adescribes the feeling as "somebody sitting on his chest", associated with diaphoresis, episode lasting for approximately 10 minutes. No radiation, aggravating or relieving factors. The severity 7-8/10 at the time of the episode. He is currently asymptomatic. Family history significant for myocardial infarction in his father who was at the age of 42. Past former smoker 10 pk yr, no alcohol or cocaine use. Reported compliance to his medications including his antiplatelet medications. No changes in activity such as exertion, or had any s/s of infection. Has not been checking his BP regularly. Allergies/Medications Allergies: Coded Allergies: No Known Allergies (09/17/17) Home Med list Amlodipine Besylate (Norvasc) 10 MG TABLET 10 MG PO DAILY High Blood Pressure Aspirin (Aspirin*) 81 MG TAB.CHEW 81 MG PO DAILY [facility] Atorvastatin Calcium 40 MG TABLET 40 MG PO [facility]00 [facility] Lisinopril 10 MG TABLET 10 MG PO DAILY High Blood Pressure Metoprolol Tartrate 25 MG TABLET 25 MG PO BID High Blood Pressure Ticagrelor (Brilinta) 90 MG TABLET 90 MG PO BID [facility] Past History Travel History Traveled to [place] past 21 day No Medical History Neurological: NONE EENT: NONE Cardiovascular: CAD, hypertension Respiratory: NONE Gastrointestinal: NONE Hepatic: NONE Renal: NONE Musculoskeletal: L3-L5 BULGING DISCS Psychiatric: NONE Endocrine: NONE Blood Disorders: NONE 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 Psychosocial History ETOH Use: denies use Illicit Drug Use: denies illicit drug use Functional Ability ADLs Independent: dressing, eating, toileting, bathing. Review of Systems Review of Systems Constitutional: Reports: see HPI, malaise. Denies: fever, weakness. EENTM: Denies: blurred vision. Cardiovascular: Reports: chest pain. Denies: edema, palpitations. Respiratory: Denies: cough, short of breath. GI: Denies: abdominal pain, diarrhea. Genitourinary: Denies: dysuria. Musculoskeletal: Denies: back pain, joint pain, muscle pain. Skin: Denies: change in skin color, jaundice. Neurological/Psychological: Denies: anxiety. Hematologic/Endocrine: Denies: bruising. Exam & Diagnostic Data Last 24 Hrs of Vital Signs/I&O Vital Signs Date Time Temp Pulse Resp B/P B/P Pulse O2 O2 Flow FiO2 Mean Ox Delivery Rate 11/11 1021 98.4 68 18 109/69 98 Room Air 11/11 0843 97.4 69 20 127/77 97 Room Air 11/11 0728 98 Nasal 2.0L Cannula 11/11 0655 96.0 67 18 136/88 98 Room Air Room Air Intake & Output 11/11 1600 11/11 0800 11/11 0000 Intake Total Output Total Balance Patient 170 lb Weight Weight Reported by Patient Measurement Method Physical Exam General Appearance Alert, Oriented X3, Cooperative, No Acute Distress Skin No Rashes, No Breakdown, No Significant Lesion Skin Temp/Moisture Exam: Warm/Dry Sepsis Skin Exam (color): Normal for Ethnicity HEENT Atraumatic, PERRLA, EOMI, Mucous Membr. moist/pink Neck Supple, No JVD, No thryomegaly, +2 Carotid Pulse wo Bruit, No LAD Lymphatic Axillary nl, Cervical nl Cardiovascular Regular Rate, Normal S1, Normal S2, No Murmurs, Gallops, Rubs Lungs Clear to Auscultation, Normal Air Movement Abdomen Normal Bowel Sounds, Soft, No Tenderness, No Hepatospenomegaly Neurological Normal Speech, Strength at 5/5 X4 Ext, Normal Tone, Sensation Intact, Cranial Nerves 3-12 NL, Reflexes 2+ Extremities No Clubbing, No Cyanosis, No Edema, Normal Pulses, No Tenderness/ Swelling Vascular Normal Pulses, Pulses Symmetrical Sepsis Peripheral Pulse Location: Dorsalis Pedis Last 24 Hrs of Labs/Sourav: Laboratory Tests 11/11/17 0835: Urine Opiates Screen < 100, Methadone Screen < 40, Barbiturate Screen < 60, Ur Phencyclidine Scrn < 6.00, Amphetamines Screen < 100, U Benzodiazepines Scrn < 85, Urine Cocaine Screen < 50, Urine Cannabis Screen > 80.00 H, Urine Color YEL , Urine Clarity CLEAR, Urine pH 6.0, Ur Specific [place] 1.025, Urine Protein NEG, Urine Ketones NEG, Urine Nitrite NEG, Urine Bilirubin NEG, Urine Urobilinogen 0.2, Ur Leukocyte Esterase NEG, Ur Microscopic EXAM NOT REQUIRED, Urine Hemoglobin NEG, Urine Glucose NEG 11/11/17 0725: Anion Gap 8, Estimated GFR > 60, BUN/Creatinine Ratio 21.1, Glucose 108 H, Calcium 9.8, Phosphorus 3.8, Magnesium 2.1, Total Bilirubin 0.4, AST 35, ALT 59, Alkaline Phosphatase 65, Creatine Kinase 96, Troponin I < 0.01, Total Protein 7.8, Albumin 4.5, Globulin 3.3, Albumin/Globulin Ratio 1.4, D-Dimer High Sensitivty < 200, CBC w Diff NO MAN DIFF REQ, RBC 4.43 L, MCV 91.3, MCH 31.4 H , MCHC 34.4, RDW 13.5, MPV 7.5, Gran % 61.9, Lymphocytes % 25.6, Monocytes % 9.8 H, Eosinophils % 2.1, Basophils % 0.6, Absolute Granulocytes 4.9, Absolute Lymphocytes 2.0, Absolute Monocytes 0.8 H, Absolute Eosinophils 0.2, Absolute Basophils 0, Serum Alcohol < 10.0 Diagnostic Data EKG Results Normal sinus rhythm, heart rate 65, QTC 429, repolarization abnormalities in ST segments in lateral leads. Assessment/Plan Assessment: Mr Sutton is a 41 year old man w/ a PMHx of hypertension(dx'ed age 27 yrs), recent hospital admission in 09/17/2017-09/20/2017 for the management of NSTEMI, and hypertensive urgency after which he was transferred to [facility] for cardiac catheterization and underwent successful stent placement MARILYN x 2 to CFX with excellent results, and was also noted to have 60-70% proximal LAD stenosis at the origin of S1 with noncritical fractional flow reserve 0.87 which is being evaluated for chest discomfort likely secondary to acute coronary syndrome. At the time of admission-temperature 97.4, pulse rate 69, respiration 20, blood pressure 127/77-->109/69, 97% on room air. Pertinent lab findings: WBC 7.9, hemoglobin 13.9, platelet count 308. Sodium 139, potassium 4.7, bicarbonate 26 BUN 19, creatinine 0.9 Magnesium 2.1 AST 35, ALT 59, alkaline phosphatase 65 Cardiac enzymes-troponin I-0.01. D-dimer less than 200 Urinalysis clear Urine tox negative for cocaine, opiates, alcohol, but was positive for cannabis. Chest x-ray did not reveal any acute cardiopulmonary findings. Last echocardiogram-09/19/2017 Normal left ventricular size and systolic function with no obvious regional wall motion abnormalities. Mild concentric LVH. Normal left ventricular diastolic filling pattern for age. The ejection fraction is visually estimated at 65%. The left atrium is normal in size. The interatrial septum is intact. There is trace tricuspid regurgitation. Pulmonary artery systolic pressure is normal. Normal pericardium without effusion. Normal aortic root dimension. He was given aspirin 325 mg once at 7:25 AM. Eetiology in this case is likely unstable angina w/ symptoms of unstable angina with positive cardiac risk factors strong family h/o, recent revascularization, smoking, age > 35, HTN. He was noted to have 60-70% proximal LAD stenosis at the origin of S1 with noncritical fractional flow reserve 0.87, which is greater than 0.75; but given recent revascularization with drug-eluting stents and possible continued proximal LAD stenosis, he needs to undergo cardiac stress test; and if found abnormal need to be assessed for cardiac catheterization again. Other etiologies such as aortic dissection, anxiety, MVP, myocarditis, pericarditis are to considered as differentials. Patients with unstable angina requiring observation on telemetry. # observe on cardiac telemetry for cardiac monitoring of any arrythmias. # serial electrocardiograms, cardiac enzymes every 8 hours # for the management of angina- SL nitroglycerin q5 min x 3, than can use iv nitro and iv morphine for pain control(hold for low BP) # non enteric coated aspirin 325 mg stat was given in the ER, and daily aspirin and Atorvastatin 80mg daily. He should be continued on Brillanta. Will discuss w / cards. # Check Echocardiogram to check for any wall motion abnormalities. # metoprolol succinate 25 mg bid. # No iv heparin at this time. # discuss early intervention with cardiac catheterization, if pt develops uncontrolled angina, dynamic EKG changes. Final recs to follow after discussing w/ the attending. As Ranked By This Provider Problem List: 1. ACS (acute coronary syndrome) Core Measures/Misc (12/06) Acute Coronary Syndrome ACS Diagnosis: Yes Last Known EF % 65 No ANKIT/ARB d/t EF >40% Congestive Heart Failure Congestive Heart Failure Diagnosis No Cerebrovascular Accident CVA/TIA Diagnosis: No VTE (View Protocol) VTE Risk Factors Acute Medical Illness No Mechanical VTE Prophylaxis d/t N/A MechProphylax Ordered No VTE Pharm Prophylaxis d/t NA PharmProphylax ordered Sepsis (View protocol) Sepsis Present: No If YES complete Sepsis Event Note If YES complete Sepsis Event Note Yoandy Quezada MD 11/11/17 1405: Core Measures/Misc (12/06) Sepsis (View protocol) If YES complete Sepsis Event Note If YES complete Sepsis Event Note Attending MD Review Statement Attending Statement Attending MD Statement: examined this patient, discuss w/resident/PA/SHOT DROPPER, agreed w/resident/PA/SHOT DROPPER, reviewed EMR data (avail) Attending Assessment/Plan: 41M PMH hypertension(dx'ed age 27 yrs), recent hospital admission 09/2017 for the management of NSTEMI and hypertensive urgency after which he was transferred to [facility] for cardiac catheterization and underwent successful stent placement MARILYN x 2 to CFX with excellent results, and was also noted to have 60- 70% proximal LAD stenosis presenting with 2 episodes of chest pain at rest. Last night had an episode, left sided, moderate, non-radiating, resolved after a few minutes. This morning had mid-sternal chest pain that felt like someone sitting on his chest with SOB and came to ER. EKG shows no acute changes, troponin negative. 1. Unstable angina Plan - Observation in telemetry - Nuclear stress test today - Cardiology consult - Continue home medications - DVT PPx
[2017-11-11 13:05] VITALS: BP 116/80
[2017-11-11] MEDS ORDERED: TOPROL XL50 M1 PO (15:26)
--- NOTE | 2017-11-11 17:37 | NUCLEAR MEDICINE REPORT ---
EXERCISE STRESS AND RESTING SPECT MYOCARDIAL PERFUSION IMAGING STUDY WITH GATED SPECT IMAGES: CLINICAL INDICATION: Chest pain. PROCEDURE: Regional myocardial perfusion was assessed using a 1 day protocol. Stress images were obtained on a 06/08/2017 following the intravenous administration of 18.5 mCi Tc 99m Myoview. Stress was performed using the standard Jerman protocol, with the patient reaching a peak heart rate of 82% maximal predicted heart rate. Rest images were obtained a 06/08/2017 following the intravenous administration of 30.0 mCi Technetium 99m Myoview. Single photon emission tomographic (SPECT) images were obtained. SPECT images were acquired in a 64 x 64 matrix of 64 projections over 180 degrees. These were reconstructed into standard short axis, horizontal and vertical long axis cardiac projections. FINDINGS: The post stress images demonstrate the left ventricular chamber to be normal in size. There is homogeneous distribution of activity in the left ventricular myocardium with no regions of abnormally decreased activity noted. The resting images also demonstrate homogeneous distribution of activity in the left ventricular myocardium, and are not significantly changed from the post stress images. The stress images were obtained using a gated SPECT technique, which permits visualization of wall motion and calculation of the left ventricular ejection fraction. No left ventricular wall motion abnormalities are noted on the stress study. The calculated left ventricular ejection fraction is 49% on the stress study. No previous study is available for comparison. IMPRESSION: Normal exercise stress and resting myocardial perfusion study with normal left ventricular wall motion and ejection fraction.
--- NOTE | 2017-11-11 17:48 | Patient Discharge Instructions ---
Discharge Instructions General Discharge Information You were seen/treated for: Chest pain Special Instructions: Please follow-up with your PCP within a week of discharge. 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 Diet Recommended Diet: Heart Healthy Acute Coronary Syndrome Inclusion Criteria At DC or during hospital stay patient has or had the following: ACS DIAGNOSIS No Discharge Core Measures Meds if any: Prescribed or Continued at Discharge Meds if any: NOT Prescribed or Continued at Discharge Congestive Heart Failure Inclusion Criteria At DC or during hospital stay patient has or had the following: CHF DIAGNOSIS No Discharge Core Measures Meds if any: Prescribed or Continued at Discharge Meds if any: NOT Prescribed or Continued at Discharge Cerebrovascular accident Inclusion Criteria At DC or during hospital stay patient has or had the following: CVA/TIA Diagnosis No Discharge Core Measures Meds if any: Prescribed or Continued at Discharge Meds if any: NOT Prescribed or Continued at Discharge Venous thromboembolism Inclusion Criteria VTE Diagnosis No VTE Type NONE VTE Confirmed by (Test) NONE Discharge Core Measures - Per Current guidelines, there needs to be overlap - treatment for the first 5 days of Warfarin therapy. - If discharged on Warfarin prior to 5 days of - overlap therapy, the patient will need to be - assessed for post discharge needs including - *Post discharge parental anticoagulation - *Warfarin and/or parental anticoagulation education - *Follow up date to check INR post discharge At least 5 days overlap therapy as Inpatient No Meds if any: Prescribed or Continued at Discharge Note: Overlap Therapy is Warfarin and Anticoagulant Meds if any: NOT Prescribed or Continued at Discharge
--- NOTE | 2017-11-11 18:09 | Cons- Cardiology ---
General Information and HPI Consulting Request Date of Consult: 11/11/17 Requested By: Yoandy Quezada MD History of Present Illness: Young patient with history of uncontrolled hypertension, who had been hospitalized at the end of august 2017 for hypertensive emergency and NSTEMI. He was stented in the Cx artery and a hemodynamically insignificant lesion in the LAD was left untouched due to negative FFR. Patient has been complaining of atypical pressure in the chest which is very different in quality to the chest pains he experienced during the previous hospitalization. He has experienced 2 episodes of of these chest pains, one lasting a minute and the second lasting more than 30, both accompanied by fatigue. There was no association with effort. He denies syncope, denies orthopnea, denies lower extremity claudication. He has been taking his medicines diligently, especially Brilinta. He has been quite tired, and down since the NSTEMI. Allergies/Medications Allergies: Coded Allergies: No Known Allergies (09/17/17) Home Med List: Amlodipine Besylate (Norvasc) 10 MG TABLET 10 MG PO DAILY High Blood Pressure Aspirin (Aspirin*) 81 MG TAB.CHEW 81 MG PO DAILY Heart [facility] Atorvastatin Calcium 40 MG TABLET 40 MG PO 1700 heart [facility] Lisinopril 10 MG TABLET 10 MG PO DAILY High Blood Pressure Metoprolol Succ XL (Toprol Xl) 50 MG TAB 1 TAB PO AT BEDTIME HEART HEALTH ( Reported) Ticagrelor (Brilinta) 90 MG TABLET 90 MG PO BID Heart Health Review of Systems Review of Systems: see HPI Past History Travel History Traveled to [place] past 21 day No Medical History Blood Transfusion Hx: No Neurological: NONE EENT: NONE Cardiovascular: CAD, hypertension, AL WITH STENTS 10/06 Respiratory: NONE Gastrointestinal: NONE Hepatic: NONE Renal: NONE Musculoskeletal: L3-L5 BULGING DISCS Psychiatric: NONE Endocrine: NONE Blood Disorders: NONE Cancer(s): NONE 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 Psychosocial History Smoking Status: Former Smoker ETOH Use: denies use Illicit Drug Use: denies illicit drug use Functional Ability ADLs Independent: dressing, eating, toileting, bathing. Exam & Diagnostic Data Vital Signs and I&O Vital Signs Date Time Temp Pulse Resp B/P B/P Pulse O2 O2 Flow FiO2 Mean Ox Delivery Rate 11/11 1305 98.1 65 18 116/80 97 Room Air 11/11 1021 98.4 68 18 109/69 98 Room Air 11/11 0843 97.4 69 20 127/77 97 Room Air 11/11 0728 98 Nasal 2.0L Cannula 11/11 0655 96.0 67 18 136/88 98 Room Air Room Air Intake & Output 11/11 1600 11/11 0800 11/11 0000 11/10 1600 11/10 0800 11/10 0000 Intake Total 180 Output Total Balance 180 Intake, Oral 180 Patient 170 lb 170 lb Weight Weight Reported by Patient Measurement Method Physical Exam General Appearance: well developed/nourished, no apparent distress Head: atraumatic Eyes: Bilateral: normal appearance. Neck: normal inspection, supple, full range of motion, trachea mid line Respiratory: normal breath sounds, no respiratory distress, lungs clear Cardiovascular: regular rate/rhythm, normal peripheral pulses, No audible murmur or rub Gastrointestinal: normal bowel sounds, soft, non-tender, no organomegaly Extremities: normal inspection, normal capillary refill, normal range of motion, no edema Neurologic/Psych: no motor/sensory deficits, awake, alert, oriented x 3, aphasia Assessment/Plan Assessment/Plan Atypical chest pain with negative nuclear stress test today. Patient can be discharged and follow up with me next week. continue same medication. Consult Acknowledgment - Thank you for your consult request.
== END 2017-11-11 18:20 ==
LOC: ERH 06:52 → ERHI 10:25 → ENRESERV 10:55 → ENTRNSPT 12:37 → EDTRNSPTSTS 12:47 → 1NO 12:55 → CMPTRNSPT 13:09 → ENPENDDIS 17:52 → 1NO 18:20
PROVIDERS: Emergency Medicine
DX: R07.89 Other chest pain (principal); Z79.82 Long term (current) use of aspirin; I10 Essential (primary) hypertension; I25.10 Atherosclerotic heart disease of native coronary artery without angina pectoris; I25.2 Old myocardial infarction; Z95.5 Presence of coronary angioplasty implant and graft; M51.86 Other intervertebral disc disorders, lumbar region; Z87.891 Personal history of nicotine dependence
CPT/HCPCS: 71045; 78452; 80307; 81003; 93005; 93010; 93016; 93017; 99291; A9502; G0378; G0480; J1245; J1644; J3490